=== PATIENT | female | born 1980 | race Caucasian/White ===

== ENCOUNTER 2021-07-17 01:22 | Day surgery (SDC) | payer OTHER, SELFPAY ==
[2021-07-16 08:18] VITALS: BMI 33.1
--- NOTE | 2021-07-16 08:32 | PC.NURSE ---
Report to the Outpatient Waiting Room, entrance under the green pavilion located off [facility], at time 1000 on date 07/17/21. OR Time: 1200. - You and your visitor will be asked a series of questions to screen for COVID 19 for your protection. - A mask is required within the hospital. One visitor will be allowed to accompany the patient into the hospital. Patients visitor will be instructed to remain with patient at all times or leave the building. We will allow the visitor to come back to the postoperative area when patient is ready. Preoperative COVID Testing Requirements: No COVID Test needed if: (proof is required; if not received patient will have Rapid Test prior to entry) - Patient has received COVID Vaccine at least 14 days prior to procedure date or - Patient has positive COVID test result within last 90 days of surgery date. COVID Test needed if above criteria is not met Patients may have clear liquids (water, carbonated beverages, clear teas, apple juice) until 3 hours prior to surgery with a maximum of 20 ounces. - No food from midnight until time of surgery Take the following medications with a SIP of water the morning of surgery: NONE Medications to discontinue per physician: VITAMINS Date to take last dose: NO MORE UNTIL AFTER SURGERY Please no make-up, nail slovak, hairspray, perfume, deodorant, or body powder the day of surgery. No jewelry (including any body piercings) or valuables the day of surgery, leave them at home. Please take a shower or bath the night before, or the morning of, surgery with an antibacterial soap. Wear comfortable, loose fitting clothing. - Jewelry must be removed prior to entering the operating room. Rings and piercings that are not removed may be cut off. - The hospital will not accept responsibility for valuables. - Please leave all valuables, including medications, at home the day of surgery. If you are going home after surgery, a licensed company driver must drive you home. - NO public transportation without another adult. - We recommend that an adult stay with you for 24 hours following discharge. - We also recommend that you do not drive, make important decision, drink alcoholic beverages, or take any drugs that were not prescribed by your health care provider for at least 24 hours after your discharge time. Follow any additional instructions given to you from your surgeon. Telephone instructions given to DIANE DAVIS and asked if any additional questions and then verbalized understanding. Patient advised to call surgeon office or pre surgery nurse liaison [phone] if any additional questions.
[2021-07-17 10:01] VITALS: BP 121/73; PULSE 90; RESP 18; TEMP 36.8; O2SAT 100
[2021-07-17] MEDS: LACTATED RINGERS 1,000 ML 30 ML IV CONT (10:25)
--- NOTE | 2021-07-17 10:38 | WPDANESEPPF ---
Anes - Initial Pre Proc Eval Procedure: Operation Date: 07/17/21 12:00 Proposed Procedures p Suction Dilatation and Curettage - Alec Duff MD Date/Time: 07/17/21 10:38 Surgeon: Alec Duff MD Pre Op Diagnosis: missed AB Patient Data Age: 41 Gender: F Height: 1.6 m Weight: 84.82 kg Allergies Allergy/AdvReac Type Severity Reaction Status Date / Time erythromycin base AdvReac Unknown STOMACH Verified 07/16/21 08:16 PAIN Home Medications Medication Instructions Recorded Confirmed Type multivitamin 1 tablet PO DAILY 07/16/21 07/16/21 History Patient hx anesthesia problems: none Family hx anesthesia problems: none Results Review: All pre-operative results and documents have been reviewed as part of the pre-operative evaluation. [facility] Past Medical History Medical History Anxiety Hx of migraines Social History Social History Smoking packs per day: 0.75 Smoking cigarettes per day: 15.0 Years smoked: 15 Smoking pack-years: 11.25 Smoking status: Former smoker Tobacco type: cigarettes Smoking end date: 04/12/15 Alcohol intake: never Substance use: never Substance use type: does not use Living arrangements: with family Spiritual care concerns: No Anes - Eval Final PreProcedure Day of Procedure 07/17/21 10:38 Patient weight: obese Heart: regular rate and rhythm Lungs: clear to auscultation Airway: Mallampati scale class II Neurological: alert and oriented Last oral intake: >/= 8 hours ASA classification: II Emergent: no Anesthetic plan: proceed Anesthesia type and monitoring: general GIVS and standard monitoring Results Review: All pre-operative results and documents have been reviewed as part of the pre-operative evaluation. Informed Consent: The patient's anesthetic plan and its attendant risks and benefits were discussed with the patient/family/POA. Questions were solicited and answers provided to the satisfaction of the patient/family/POA.
--- NOTE | 2021-07-17 12:03 | PM.IMHP ---
H&P: HPI History of Present Illness Date/Time: 07/17/21 12:03 41 y/o with LMP 04/28/21, putting her at 11 w 3 days. Ultrasound in office shows IUP with CRL 8 weeks size and no cardiac activity. Cramping, but no bleeding. Rh pos. Chief Complaint: Miscarriage Review of Systems Review of Systems: All systems reviewed & are unremarkable except as noted in HPI and below PMFSH Past Medical History Medical History Anxiety Hx of migraines Social History Social History Smoking packs per day: 0.75 Smoking cigarettes per day: 15.0 Years smoked: 15 Smoking pack-years: 11.25 Smoking status: Former smoker Tobacco type: cigarettes Smoking end date: 04/12/15 Alcohol intake: never Substance use: never Substance use type: does not use Living arrangements: with family Spiritual care concerns: No Meds Home Medications and Allergies Home Medications Medication Instructions Recorded Confirmed Type multivitamin 1 tablet PO DAILY 07/16/21 07/17/21 History Allergies Allergy/AdvReac Type Severity Reaction Status Date / Time erythromycin base AdvReac Unknown STOMACH Verified 07/17/21 11:22 PAIN Vital Signs Vital Signs - 24 hr 07/17/21 10:01 Temperature 36.8 C Pulse Rate 90 Respiratory Rate 18 Blood Pressure 121/73 Pulse Oximetry 100 Exam Const: Orientation/consciousness: patient oriented x3 Other: Well-developed, well-nourished female in no acute distress. Neck: Thyroid: thyroid normal Lymphatic: no lymphadenopathy noted (in neck, axilla or inguinal nodes) Resp: Effort & Inspection: normal respiratory effort Auscultation: clear to auscultation bilaterally Cardio: Rate: regular rate Rhythm: regular rhythm Heart sounds: S1 normal heart sound present and S2 normal heart sound present GI: Other: ABD: Soft, nontender, nondistended. No guarding or rebound tenderness. No hepatosplenomegaly. : General: Yes no CVA tenderness Other: External genitalia: normal female hair distribution, without lesion. Urethral meatus: no lesion, non prolapsed. Bladder: no mass, nontender Vagina: well-estrogenized, without lesion or discharge. No cystocele or rectocele. Cervix: no lesion or discharge. Uterus: small, anteverted, freely mobile, nontender Adnexa: no mass or tenderness. Anus/perineum: no lesions, nontender Back/Spine/Pelvis: Back: no CVA tenderness Skin: General skin exam: normal color and no rashes or lesions noted Neuro: General: patient oriented x3 Extrem: Other: Extremities: nontender with no edema Psych: Mental Status: mental status grossly normal Affect: normal affect Assessment and Plan Assessment and plan (1) Missed : Code(s): O02.1 - Missed Status: Acute Assessment and Plan: A: Missed SAB. P: Offered expectant management vs. suction D&C. She prefers the latter. She understands risks of surgery to include risks of anesthesia, risks of pain, infection, bleeding, blood products, thromboembolic phenomena and damage to adjacent structures such as bowel, bladder, ureters, blood vessels and nerves. She understands all these risks and elects to proceed with surgery.
--- NOTE | 2021-07-17 12:06 | WPDHPUPDATE1 ---
History and Physical Update Update Date/Time: 07/17/21 12:06 History and Physical has been reviewed, including an updated exam of the patient. There are NO changes in the patient's condition. Risks, benefits, and alternatives have been discussed and questions answered. Patient agrees to proceed with procedure.
--- NOTE | 2021-07-17 12:40 | W.PM.PROC2 ---
Procedure Note - Detailed Date of Procedure 07/17/21 Pre-op Diagnosis Missed SAB Post-op Diagnosis Same Procedure Performed Ultrasound guided dilation and suction curettage Surgeon Alec Duff MD Anesthesia MAC and Local (Paracervical block) Findings POC noted. Uterus empty at conclusion of procedure. Description of Procedure The patient was taken to the operating room where she was prepared and draped in the usual sterile fashion in the dorsal lithotomy position. The bladder was drained with a red rubber catheter. A sterile speculum was placed into the vagina. The anterior lip of the cervix was grasped with a single-tooth tenaculum. Ten mL of 1% lidocaine was administered in a paracervical block. The cervix was gently dilated using Hegar dilators until an 8mm dilator could be passed. The 8mm curved tip suction curette was advanced. Suction curettage was performed and products of conception were aspirated. Sharp curettage was then performed until a good uterine cry was noted. A final pass with the suction curette was made. Transabdominal ultrasound exam performed by me throughout the procedure confirmed an empty endometrial cavity. The tenaculum was removed. Hemostasis was excellent. Sponge, lap, needle and instrument counts were correct. The patient was taken to the recovery room in stable condition. I was present and scrubbed for the entire procedure. Implants None Estimated Blood Loss 50 Drains No Packing No Pathology Yes (Endometrial curettings) Complications None Condition Stable Disposition PACU
[2021-07-17 12:50] VITALS: BP 121/66; PULSE 84; RESP 14; O2SAT 97
[2021-07-17 13:20] VITALS: BP 106/65; PULSE 65; RESP 14
[2021-07-17 13:50] VITALS: BP 106/71; PULSE 70; RESP 12
[2021-07-17 14:20] VITALS: BP 114/73; PULSE 72; RESP 14
== END 2021-07-17 15:00 | disposition home or self-care (01) ==
PROVIDERS: PCP Physician Assistant; Visit Provider Obstetrics & Gynecology
PROC: (CPT 59820; principal; 2021-07-17 12:00)
DX: O02.1 Missed abortion (principal); Z87.891 Personal history of nicotine dependence; Z3A.11 11 weeks gestation of pregnancy
CPT/HCPCS: 59820; 88305; A9270; J0131; J1100; J2250; J2270; J2405; J2590; J2704; J7120

== ENCOUNTER 2024-06-07 16:16 | Outpatient (CLI) | payer OTHER, SELFPAY ==
[2024-06-07] VITALS (12 sets, daily range): BP systolic 133–144; BP diastolic 73–86; PULSE 107–124; O2SAT 94–97
[2024-06-07 17:25] LABS: Basophils Percent Auto 0.3 % (0.2-1.2); Eosinophils Absolute Auto 0.1 K/mm3 (0-0.3); Eosinophils Percent Auto 1.2 % (0-4.4); Hematocrit 34.8 % (37.0-47.0); Hemoglobin 11.6 g/dL (12.0-15.0); Immature Granulocyte Absolute 0.12 K/mm3 (0.00-0.031); Immature Granulocyte Percent A 1.2 % (0-0.5); Lymphocytes Absolute Auto 1.74 K/mm3 (0.9-3.2); Lymphocytes Percent Auto 17.8 % (18.3-44.2); Mean Corpuscular HGB Conc 33.3 g/dl (32-36); Mean Corpuscular Hemoglobin 31.4 pg (26-34); Mean Corpuscular Volume 94.1 fl (80-100); Mean Platelet Volume 10.7 fl (7.4-10.4); Monocytes Absolute Auto 0.8 K/mm3 (0.1-0.6); Monocytes Percent Auto 8.1 % (2.6-8.5); Neutrophils Percent Auto 71.4 % (45.5-73.1); Platelet Count Result 265 k/mm3 (150-375); Red Cell Distribution Width 14.2 % (11.5-14.5); White Blood Count 9.8 K/mm3 (4.5-10.0)
[2024-06-07 17:35] LABS: Alanine Aminotransferase 10 U/L (6-35); Albumin Level 3.1 g/dL (3.5-5.1); Alkaline Phosphatase 133 U/L (38-126); Anion Gap 10 mmol/L (4-12); Aspartate Amino Transferase 15 U/L (14-36); Bilirubin,Total 0.5 mg/dL (0.2-1.3); Blood Urea Nitrogen 5 mg/dL (7-17); Calcium 9.6 mg/dL (8.4-10.2); Carbon Dioxide 17 mmol/L (22-30); Chloride 108 mmol/L (98-107); Estimated Glomerular Filt Rate > 60; Glucose 102 mg/dL (65-110); Potassium 3.6 mmol/L (3.4-5.0); Sodium 135 mmol/L (137-145); Uric Acid 4.9 mg/dL (2.5-7.5)
[2024-06-07 17:37] LABS: Add Urine Microscopic? YES; Appearance Urine Cloudy (Clear); Bacteria Urine 4+ /hpf; Bilirubin Urine Negative (Negative); Blood Urine Negative (Negative); Color Urine Yellow (Yellow); Glucose Urine UA Negative (Negative); Ketones Urine Trace mg/dL (Negative); Leukocyte Esterase Ur 3+ LEU/UL (Negative); Need Manual Microscopic Reviewed; Nitrate Urine Negative (Negative); Protein Urine Trace mg/dL (Negative); RBC Urine 0-2 /hpf (0-2); Specific Grav Ur 1.014 (1.001-1.035); Squamous Epithelial Cell Urine Many /hpf (Few); Urobilinogen Urine 0.2 mg/dL (<2.0); WBC Urine 21-50 /hpf (0-3); pH Urine 7.5 (5.0-9.0)
[2024-06-07 17:50] LABS: Creatinine Urine 102.2 mg/dL; Total Protein Urine Random 19 mg/dL; Ur Ttl Prot Creatinine Ratio 0.19 mg/mg (0-0.20)
--- OUTSIDE RECORDS SUMMARY | 2024-06-07 18:24 | XMS_ITS | Encounter Summary ---
Author Organization [facility] Care Team Providers Care Skiver Heel Tap Name Role Phone Unknown, Karla Primary Care Provider Unavail able Ama Mike MD Primary Care Provider ParentHenny SANDRA Primary Care Provider [phone] Encounter Details Date Type Department Care Team (Latest Contact Info) Description 11/07/2014 Orders Only [facility] CLINCONV ProviderCarlos A MD [address] [place] [id number] Social History Tobacco Use Types Packs/Day Years Used Date Smoking Tobacco: Never Assessed Comments Unknown Sex and Gender Information Value Date Recorded Sex Assigned at Not on file 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 Historical Provider [facility] MATT HARRISON Final Result documented in this encounter Visit Diagnoses Not on filedocumented in this encounter Care Teams Skiver Heel Tap Relationship Specialty Start Date End Date Unknown, Karla PCP - General 05/25/22 06/10/22 Ama Mike MD PCP - General Family Practice 06/11/22 08/02/23 ParentHenny PA [address] [address] PCP - General Family Practice 08/03/23 documented as of this encounter
--- OUTSIDE RECORDS SUMMARY | 2024-06-07 18:24 | XMS_ITS | Clinical Summary ---
Author Organization [facility] Address [address] [address] Phone Care Team Providers Care Product Craftsman Name Role Phone Parent, Henny SotoKishan FLORES Primary Care Provider [phone] Allergies Active Allergy Reactions Criticality Noted Date Comments Erythromycin Stomach upset Low 12/06/2014 Stomach/GI Upset Stomach pain Medications traMADoL (ULTRAM) 50 mg tablet Take 1 tablet by mouth as needed Active cholecalciferol (VITAMIN D-3) 1,000 unit capsule Take 1,000 Units by mouth daily Active ketorolac (TORADOL) 10 mg tablet Take 10 mg by mouth every 6 (six) hours as needed Active rizatriptan (MAXALT) 10 mg tablet Take 10 mg by mouth as needed Active 168/iron/folic/ omega3 (ONE-A-DAY -1 ORAL) Take by mouth daily Active ALPRAZolam (XANAX) 0.5 mg tablet Take 0.5 mg by mouth nightly as needed for anxiety or sleep (will take 1/2 a tab needed unless for sleep) Active magnesium gluconate (MAGONATE) 500 mg (27 mg elemental) tabletIndicatio ns:hypomagnesem ia Take 500 mg by mouth daily Active MAGNESIUM MAL, THREON, CHELATE ORAL Take by mouth daily Active TURMERIC ORAL Take by mouth daily Active ascorbic acid (vitamin C) 1,000 mg tablet Take 1,000 mg by mouth daily Active docosahexaenoic acid/epa (FISH OIL ORAL) Take by mouth daily Active Active Problems Problem Noted Date Diagnosed Date Chronic bilateral low back pain without sciatica 06/11/2022 Coccydynia 06/11/2022 Mild depression 06/11/2022 MARYLOU (generalized anxiety disorder) 06/11/2022 Poor sleep 06/11/2022 Migraine without aura and wi thout status migrainosus, not intractable 06/11/2022 Cervicogenic headache 06/11/2022 Chronic tension-type headache, not intractable 0 06/11/2022 OMAIRA III (vulvar intraepithelial neoplasia III) 0 12/10/2014 Immunizations Immunization Administration Dates Next Due MMR 12/04/2017 TD Preservative Free 10/18/2014 Surgical History Surgery Date Site/Laterality Comments DILATION AND CURETTAGE OF UTERUS 04/12/2004 - 04/11/2005 CERVICAL BIOPSY W/ LOOP ELEC TRODE EXCISION 04/12/2009 - 04/11/2010 SKIN CANCER EXCISION 04/12/2013 - 04/11/2014 Vulva DILATION AND CURETTAGE OF UTERUS 04/12/2021 - 04/11/2022 Medical History Medical History Date Comments Headache Anxiety Depression Sleep difficulties Back pain Arthritis Vulvar intraepithelial neoplasia (OMAIRA) Family History Medical History Relation Name Comments Heart failure Maternal Grandfather Arthritis Maternal Grandmother Endometriosis Maternal Grandmother Anxiety disorder Mother Arthritis Mother Hypertension Mother Heart failure Paternal Grandfather Lung cancer Paternal Grandfather Breast cancer Paternal Grandmother Chiari malformation Sister Relation Name Status Comments Father Maternal Grandfather Maternal Grandmother Mother Paternal Grandfather Paternal Grandmother Sister Social History Tobacco Use Types Packs/Day Years Used Date Smoking Tobacco: Former Cigarettes 0.8 10 2 - 2014 Smokeless Tobacco: Never PHQ-2 Answer Date Recorded PHQ-2 Total Score (If total score is 3 or more points, staff should administer the PHQ-9) 0 06/11/2022 Personal Safety Answer Date Recorded Have you ever been in or are you currently in a harmful physical or emotional relationship or is someone making you feel afraid or unsafe? 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 Gender Identity Not on file Sexual Orientation Not on file Obstetrics History Last Filed Vital Signs Vital Sign Reading Time Taken Comments Blood Pressure 126/60 08/03/2023 5:30 PM CDT Pulse 68 08/03/2023 5:30 PM CDT Temperature 36.5 C (97.7 F) 08/03/2023 11:49 AM CDT Respiratory Rate 19 08/03/2023 5:30 PM CDT Oxygen Saturation 99% 08/03/2023 5:30 PM CDT Inhaled Oxygen Concentration - - Weight 86.6 kg (191 lb) 08/03/2023 11:49 AM CDT Height 160 cm (5' 3 ) 08/03/2023 11:49 AM CDT Body Mass Index 33.83 08/03/2023 11:49 AM CDT Plan of Treatment Health Maintenance Due Date Last Done Comments Breast Cancer Screening-Mammogram 1980 Hepatitis C Screening 1980 Varicella Vaccines (1 of 2 - 13+ 2-dose series) 01/21/1993 Hepatitis B Screening 01/21/1998 Regular Well Visit/Exam 18-64 01/21/1998 DTaP/Tdap/Td Vaccine (1 - Tdap) 10/19/2014 10/18/2014 Cervical Cancer Screening 03/19/20232021, 03/19/2022 Depression Screening 06/12/2023 06/11/2022, 06/11/2022 Covid-19 Vaccine (3 - 2023-2 5 season) 2023 09/06/2020, 08/14/2020 Influenza Vaccine (#1) 2023 HPV Vaccines Aged Out No longer eligi ble based on patient's age to complete this topic Pneumococcal vaccine <65 Aged Out No longer eligible based on patient's age to complete this topic Procedures Procedure Name Priority Date/Time Associated Diagnosis Comments PAP SMEAR WITH HPV Routine 03/19/2022 from Last 3 Months or Most Recently Relevant to Health Maintenance Results * PAP SMEAR WITH HPV (03/19/2022) us Historical Provider HEALTH MAINTENANCE Final Result from Last 3 Months or Most Recently Relevant to Health Maintenance Insurance [employer] PPO [facility] Advance Directives For more information, please contact: [phone] Documents on File Type Date Recorded 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
--- OUTSIDE RECORDS SUMMARY | 2024-06-07 18:24 | XMS_ITS | Referral Summary ---
Author Organization [facility] Address [address] [address] Care Team Providers Care Barrel Cutter Name Role Phone Parent, Henny FLORES Primary Care Provider [phone] Source Comments [facility],non-owned Affiliates and Associated Physician Practices is amultiple site organization consisting of ambulatory clinics and hospital sitesin [place], [place]. This disclosure is being madepursuant to the Care Everywhere program and may not contain all information available regarding this patient. Last updated 17.[facility] Allergies Active Allergy Reactions Criticality Noted Date Comments Erythromycin Other Low 12/06/2014 Stomach pain Medications * Be aware that medications may not be up to date on this document. Alwaysverify current medications with the patient. Medication Sig Dispensed Refills Start Date End Date Status MAGNESIUM PO Take 1 tablet by mouth once daily Active vitamin D3 (D3-1000) 1000 UNIT capsule Take 1,000 Units by mouth once daily Active ferrous sulfate 325 (65 FE) MG tablet Take 325 mg by mouth once daily Active rizatriptan (MAXALT) 10 MG tablet Take 10 mg by mouth daily as needed - may repeat one time for Migraine N Active ALPRAZolam (XANAX) 0.25 MG tablet Take 0.25 mg by mouth 3 times daily as needed for Anxiety Active TRAMADOL HCL PO Take 1 tablet by mouth once daily Active ketorolac (TORADOL) 10 MG tablet Take 10 mg by mouth every 6 hours as needed for Pain Active Active Problems Patient Care Coordination No te Formatting of this note migh t be different from the original. NOPP/MFCC 06/2017 Problem Noted Date Diagnosed Date AMA (advanced maternal age) multigravida 35+ 10/2017 OMAIRA III (vulvar intraepithelial neoplasia III) 0 12/10/2014 Anxiety 12/10/2014 Social History Tobacco Use Types Packs/Day Years Used Date Smoking Tobacco: Never Smokeless Tobacco: Never Alcohol Use Standard Drinks/Week Comments No 0 (1 standard drink = 0.6 oz pur e alcohol) Sex and Gender Information Value Date Recorded Sex Assigned at Not on file Gender Identity Not on file Sexual Orientation Not on file Last Filed Vital Signs Vital Sign Reading Time Taken Comments Blood Pressure 120/80 08/29/2020 2:50 PM CDT Pulse - - Temperature - - Respiratory Rate - - Oxygen Saturation - - Inhaled Oxygen Concentration - - Weight 84.4 kg (186 lb) 08/29/2020 2:50 PM CDT Height 160 cm (5' 3 ) 08/29/2020 2:50 PM CDT Body Mass Index 32.95 08/29/2020 2:50 PM CDT Plan of Treatment Not on file Care Teams Barrel Cutter Relationship Specialty Start Date End Date ParentHenny PA [address] [phone] PCP - General 07/22/21
--- OUTSIDE RECORDS SUMMARY | 2024-06-07 18:24 | XMS_ITS | Encounter Summary ---
Author Organization [facility] Care Team Providers Care Spinner Fixer Name Role Phone Unknown, Karla Primary Care Provider Unavail able Ama Mike MD Primary Care Provider ParentHenny SANDRA Primary Care Provider [phone] Encounter Details Date Type Department Care Team (Latest Contact Info) Description 11/06/2014 Orders Only [facility] CLINCONV ProviderCarlos A MD [address] [place] [address] Social History Tobacco Use Types Packs/Day Years Used Date Smoking Tobacco: Never Assessed Comments Unknown Sex and Gender Information Value Date Recorded Sex Assigned at Not on file 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
--- OUTSIDE RECORDS SUMMARY | 2024-06-07 18:24 | XMS_ITS | Patient Health Summary ---
Author Organization [facility] Address [address] [place] [address] Care Team Providers Care Butadiene Compressor Operator Name Role Phone Parent, Henny FLORES Primary Care Provider [phone] Note from [facility],non-owned Affiliates and Associated Physician Practices is amultiple site organization consisting of ambulatory clinics and hospital sitesin [place], [place], [place] and [place]. This disclosure is being madepursuant to the Care Everywhere program and may not contain all information available regarding this patient. Last updated 17.[facility] Allergies * Erythromycin(Other) -Low Criticality Medications * Be aware that medications may not be up to date on this document. Alwaysverify current medications with the patient. * MAGNESIUM PO Take 1 tablet by mouth once daily * vitamin D3 (D3-1000) 1000 UNIT capsule Take 1,000 Units by mouth once daily * ferrous sulfate 325 (65 FE) MG tablet Take 325 mg by mouth once daily * rizatriptan (MAXALT) 10 MG tablet Take 10 mg by mouth daily as needed - may repeat one time for Migraine N * ALPRAZolam (XANAX) 0.25 MG tablet Take 0.25 mg by mouth 3 times daily as needed for Anxiety * TRAMADOL HCL PO Take 1 tablet by mouth once daily * ketorolac (TORADOL) 10 MG tablet Take 10 mg by mouth every 6 hours as needed for Pain Active Problems Problem Noted Date Diagnosed Date AMA (advanced [...] Mass Index 32.95 08/29/2020 2:50 PM CDT Procedures * DERMATOPATHOLOGY(Performed 05/01/2021) * SONOGRAM - TRANSVAGINAL(Performed 07/26/2017) Performed for Elderly multigravida in second trimester (HCC) * SONOGRAM - TRANSVAGINAL(Performed 07/12/2017) Performed for Elderly multigravida in second trimester (HCC) * SONOGRAM - COMPLETE(Performed 06/14/2017) Performed for Antepartum multigravida of advanced maternal age (HCC) * ANEUPLOIDY SCREENING(Performed 06/14/2017) * PATHOLOGY/GENETICS HISTORICAL-ONBASE(Performed 12/06/2014) Results * DERMATOPATHOLOGY (05/01/2021 12:00 AM WEB DESIGNER) Case Report Dermatopathology Report Case: [id number] Authorizing Provider: Rox Griffin DO Collected: 05/01/2021 12:00 AM Ordering Location: [facility] Received: 05/05/2021 10:30 AM Pathologist: Janine Shepard MD Specimen: Skin, right anterior lower extremity 4:47 PM [facility] DERMATOPATHOLOGY [facility]ORAT[facility] Final Diagnosis Specimen A. SKIN, right anterior lower extremity: SEBORRHEIC KERATOSIS, MACULAR (L82.1) 2 4:47 PM [facility] DERMATOPATHOLOGY [facility]ORAT[facility] Clinical History ISK R/O NMSC. 2 4:47 PM [facility] DERMATOPATHOLOGY [facility] Gross Description Specimen A: Received is one formalin filled container labeled with the patient's name and designated right anterior lower extremity. The specimen consists of a shave biopsy measuring [id number]. Jar 0. 2 4:47 PM [facility] DERMATOPATHOLOGY [facility]ORATORY Microscopic Description Specimen A. SKIN, right anterior lower extremity: Sections show a relatively broad, flat proliferation of small keratinocytes. The surface is gently papillated, and there is increased basilar pigmentation. 2 4:47 PM [facility] DERMATOPATHOLOGY [facility]ORATORY Disclaimer An external and internal positive and negative controls are appropriate for the histochemical, immunohistochemical and immunofluorescence stain(s) in this case (if any), except where stated explicitly. The performance characteristics of the stain(s) cited in this report were developed and its performance characteristic determined by the Dermatopathology Laboratory at [facility], directed by Dr. Belinda Shepard. These tests need not be, and therefore are not, approved by the [place] Food and Drug Administration. The tests are used for clinical purposes. Billing Codes Specimen Charges Stain Charges 83048 1 2 4:47 PM [facility] DERMATOPATHOLOGY [facility] Embedded Images 2 4:47 PM [facility] DERMATOPATHOLOGY [facility]ORY Pathology/Cytolog y TISSUE SPECIMEN FROM SKIN / Unknown 05/01/2021 05/05/2021 10:30 AM [facility] Rox Griffin DO LAB - PATHOLOGY/C YTOLOGY ORDERABLES DERMATOPATHOLOGY LABORATORY [facility] - Department of Dermatology [facility] Medicine [address] [place] [address], [address] Floor [address] [phone] * SONOGRAM - TRANSVAGINAL (07/26/2017 3:36 PM CDT) Only the most recent of2 resultswithin the time period is included. Anatomical Region Laterality Modality Other 07/26/2017 3:36 PM CDT Narrative 07/28/2017 8:12 AM CDT [facility] PHONE: FAX: Pat. Name: DIANE SUMMERS Pat. No: [id number] Study Date: 07/26/2017 3:36pm , Age: 10 1980, 37 Pregnancies: 2, Para 0, Ab 1 Height: 63 in Weight: 190 lb LMP: 03/22/2017 GA by LMP: 18w0d GA by Base: 18w4d BELKIS: 12/23/2017 GA Selected: 18w4d (From [facility]) BELKIS: 12/23/2017 Referring MD: Alec Duff MD Drink Mixer: Rosalba Dia RDMS CPT4: 36411,76179 BMI: 33.65 Hist/Ind: Hx of LEEP AMA Hx of substance abuse Spotting in 1st trimester Uncertain LMP Cervix: Length: 4.8 cm Approach: transvaginal Heart Rate: 149 bpm Amniotic Fluid Index: 04.1cm (Deepest Pocket) EVAL, PLACENTA Presentation: breech Placenta: anterior Heart Rate: 149 bpm Amniotic Fluid Volume: normal CLINICAL SUMMARY Study Number: 3 A caraballo fetus is identified in breech presentation. The placenta is anterior. The amniotic fluid volume is normal. IMPRESSION: Single, live, IUP at 18w4d Normal AFV Reassuring cervical length and appearance RECOMMEND: Follow up ultrasound in 2 weeks for anatomy screen and reassess cervical length Thank you for allowing us the opportunity to care for your patient Vidal Malhotra MD <Electronic Signature> 07/26/2017 04:27pm Arnaud العراقي MD [facility] ORDERABLES * SONOGRAM - COMPLETE (06/14/2017 3:22 PM WEB DESIGNER) Anatomical Region Laterality Modality Other 06/14/2017 3:22 PM WEB DESIGNER Narrative 06/14/2017 4:07 PM WEB DESIGNER [facility] PHONE: FAX: Pat. Name: DIANE SUMMERS Pat. No: [id number] Study Date: 06/14/2017 3:22pm , Age: 10 1980, 37 Pregnancies: 2, Para 0, Ab 1 Height: 63 in Weight: 190 lb LMP: 03/22/2017 GA by LMP: 12w0d GA by US: 12w2d BELKIS: 12/25/2017 GA Selected: 12w4d (Outside Scan) BELKIS: 12/23/2017 Referring MD: Arnaud العراقي MD Drink Mixer: Yifan Parekh RDMS CPT4: 57514 BMI: 33.65 Hist/Ind: AMA Hx of substance abuse Hx of Leep Spotting in 1st trimester MEASUREMENTS & AGE GROWTH EVALUATION Measurement GA Range Srce %for GA Ratios ----- ---- ------- CRL 5.8 cm 12w2d ([id number]) Hadl CRL 38% GA for sonogram 12w2d ([id number]) based on (CRL) Avg Markers for Chromosomal Abnormality: NT 1.0 mm (Normal) Heart Rate: 162 bpm EVAL, PLACENTA Location: intrauterine Gestational Sac: normal Yolk Sac: not seen Embryo: visualized Heart Rate: 162 bpm Anatomy!Seen!Not Seen!Comments # Fetuses ! ! !One Amnion ! x ! ! Chorion ! x ! ! Myometrium ! x ! ! Right Ovary ! ! x ! Left Ovary ! ! x ! Cul de sac ! x ! ! Calvarium ! x ! ! Midline Falx ! x ! ! 4th Ventricle! ! x ! Ventricles ! ! x ! Choroid Plexu! x ! ! Nasal Bone ! ! x ! Neck/Dorsum ! x ! ! 4 CH ! ! x ! Transtracheal! ! x ! Abdominal Cor! x ! ! Diaphragm ! ! x ! Spine ! ! x ! Stomach ! ! x ! Kidneys ! ! x ! Bladder ! ! x ! Upper Extremi! x ! ! Lower Extremi! x ! ! CLINICAL SUMMARY Study Number: 1 A single intrauterine gestational sac is seen. The gestational sac contains a a fetus. There is normal heart motion. There is no free fluid in the cul de sac. IMPRESSION: Single, live IUP at 12w4d RECOMMEND: Follow up ultrasound at 16 weeks for TV CL NIPT drawn today. Thank you for allowing us the opportunity to care for your patient. Camron Grewal MD <Electronic Signature> 06/14/2017 04:07pm Arnaud العراقي MD [facility] ORDERABLES * PANORAMA TEST (06/14/2017) Trisomy 21 Low Risk Trisomy 18 Low Risk Trisomy 13 Low Risk Monosomy X Low Risk Triploidy/Angelica shing Twin NIPT Low Risk Blood BLOOD SPECIMEN / Unknown 06/14/2017 Narrative Razia Castanon GC - 06/22/2017 NIPT predicted gender: female Fraction: 10.9% Panorama - juan screen Hard copy results are scanned under media. Camron Grewal MD LAB - CHEMISTRY ISRRAEL BYRNES * PATHOLOGY/GENETICS HISTORICAL-ONBASE (12/06/2014) 12/06/2014 Narrative [facility] - 12/11/2014 7:33 AM CDT Nathaniel Sheffield MD LAB - CHEMISTRY ISRRAEL BYRNES [facility] [address] Care Teams Butadiene Compressor Operator Relationship Specialty Start Date End Date ParentHenny PA [address] [id number] PCP - General 07/22/21
--- OUTSIDE RECORDS SUMMARY | 2024-06-07 18:24 | XMS_ITS | Clinical Summary ---
Author Organization [facility] Address [address] [place] [address] Care Team Providers Care Trial Lawyer Name Role Phone Parent, Henny FLORES Primary Care Provider [phone] Source Comments [facility],non-owned Affiliates and Associated Physician Practices is amultiple site organization consisting of ambulatory clinics and hospital sitesin [place], [place], [place] and [place]. This disclosure is being madepursuant to the Care Everywhere program and may not contain all information available regarding this patient. Last updated 17.[facility] Allergies Active Allergy Reactions Criticality Noted Date [...] 08/29/2020 2:50 PM CDT Plan of Treatment Health Maintenance Due Date Last Done Comments LIPID TESTING 1980 MAMMOGRAM 1980 PAP SMEAR 1980 HIV SCREENING 01/21/1995 HEPATITIS C SCREENING 01/17/1998 DTAP/TDAP/TD VACCINES (1 - Tdap) 01/21/1999 HEPATITIS B VACCINE (1 of 3 - 19+ 3-dose series) 01/21/1999 SCREENING FOR DIABETES 08/29/2020 COVID-19 VACCINE ( - 2023-2 5 season) 2023 INFLUENZA VACCINE (#1) 2023 DEPRESSION SCREENING 04/12/2024 ZOSTER VACCINE (1 of 2) 01/21/2030 HIB VACCINE Aged Out No longer eligi ble based on patient's age to complete this topic HPV VACCINE Aged Out No longer eligi ble based on patient's age to complete this topic MENINGOCOCCAL (Group B) VACCINE Aged Out No longer eligible based on patient's age to complete this topic MENINGOCOCCAL VACCINE Aged Out No latha judson eligible based on patient's age to complete this topic PNEUMOCOCCAL VACCINE Aged Out No long er eligible based on patient's age to complete this topic Care Teams Trial Lawyer Relationship Specialty Start Date End Date Henny Shipley PA [address] [place] [id number] PCP - General 07/22/21
--- OUTSIDE RECORDS SUMMARY | 2024-06-07 18:24 | XMS_ITS | Referral Summary ---
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 Gender Identity Not on file Sexual Orientation [...] 08/03/2023 11:49 AM CDT Plan of Treatment Not on file Procedures Procedure Name Priority Date/Time Associated Diagnosis Comments HM PAP SMEAR WITH HPV Routine 03/19/2022 from Last 3 Months or Most Recently Relevant to Health Maintenance Results * HM PAP SMEAR WITH HPV (03/19/2022) us Historical Provider HEALTH MAINTENANCE Final Result from Last 3 Months or Most Recently Relevant to Health Maintenance Insurance [employer] OPT[employer] PPO [facility] OPTIONS PPO Advance Directives For more information, please contact: [phone] Documents on File Type Date Recorded Patient Electrical Service Technician Expl anation ADVANCE DIRECTIVE 08/05/2012 12:00 AM BRISSA R OF ENTERTAINER & COMIC FINANCIAL/MEDICAL Care Teams Tobacco Drying Machine Operator Relationship Specialty Start Date End Date Henny Shipley PA [address] [place] [address] PCP - General Family Practice 08/03/23
--- OUTSIDE RECORDS SUMMARY | 2024-06-07 18:24 | XMS_ITS | Encounter Summary ---
Author Organization [facility] Facility Care Team Providers Care Farm Equipment Assembler Name Role Phone Unknown, Notinfile Primary Care Provider Unavail Ama Hillman MD Primary Care Provider ParentHennyKishan FLORES Primary Care Provider [phone] Encounter Details Date Type Department Care Team (Latest Contact Info) Description 11/01/2014 Orders Only [facility] CLINCONV ProviderCarlos A MD [address] [place] [address] Social History Tobacco Use Types Packs/Day Years Used Date Smoking Tobacco: Never Assessed Comments Unknown Sex and Gender Information Value Date Recorded Sex Assigned at Not on file Legal Sex Female 6:22 PM PRODUCTION ADMINISTRATIVE ASSISTANT Gender Identity Not on file Sexual Orientation Not on file documented as of this encounter Plan of Treatment Not on file documented as of this encounter Procedures Procedure Name Priority Date/Time Associated Diagnosis Comments SCAN - LABS 06/23/2016 12:00 AM CDT CARDIOLOGY REPORT 06/23/2016 12: 00 AM CDT CARDIOLOGY REPORT 06/23/2016 12: 00 AM CDT documented in this encounter Results * SCAN - LABS (06/23/2016 12:00 AM CDT) Narrative 06/23/2016 12:00 AM CDT Ordered by an unspecified provider. Historical Provider Final Res ult * CARDIOLOGY REPORT (06/23/2016 12:00 AM CDT) Anatomical Region Laterality Modality Other Narrative 06/23/2016 12:00 AM CDT Ordered by an unspecified provider. us Historical Provider CV CARDIAC SERVICES PROCE DURES Final Result * CARDIOLOGY REPORT (06/23/2016 12:00 AM CDT) Anatomical Region Laterality Modality Other Narrative 06/23/2016 12:00 AM CDT Ordered by an unspecified provider. us Historical Provider CV CARDIAC SERVICES PROCE DURES Final Result documented in this encounter Visit Diagnoses Not on filedocumented in this encounter Care Teams Farm Equipment Assembler Relationship Specialty Start Date End Date Unknown, Notinfile PCP - General 05/25/22 06/10/22 Ama Mike MD PCP - General Family Practice 06/11/22 08/02/23 Henny Shipley PA [address] [address] PCP - General Family Practice 08/03/23 documented as of this encounter
--- OUTSIDE RECORDS SUMMARY | 2024-06-07 18:24 | XMS_ITS | Clinical Summary ---
Author Organization [facility] Address [address] [place] [address] Care Team Providers Care Track And Field Coach Name Role Phone Unavailable Primary Care Provider Unavailabl e Social History Tobacco Use Types Packs/Day Years Used Date Smoking Tobacco: Never Assessed Comments Unknown Sex and Gender Information Value Date Recorded Sex Assigned at Not on file Legal Sex Female 7:38 PM CDT Gender Identity Not on file Sexual Orientation Not on file Plan of Treatment Health Maintenance Due Date Last Done Comments Cervical Cancer Screening Pa p Smear (Age 30 to 64) Every 3 Years 1980 Annual Physical 01/21/1983 Hepatitis C 01/21/1998 DTaP, Tdap and Td Vaccines ( 1 - Tdap) 01/21/1999 Hepatitis B Vaccines (1 of 3 - 19+ 3-dose series) 01/21/1999 Cervical Cancer Screening Pa p with HPV Testing (Age 30 to 64) Every 5 Years 01/21/2010 Cervical Cancer Screening with HPV 01/21/2010 Mammogram Screening 2020 COVID-19 Vaccine (2023-2 5 season) 2023 Influenza Adult (#1) 2024 HPV Vaccines Aged Out No longer eligi ble based on patient's age to complete this topic Meningococcal B Vaccine Aged Out No l onger eligible based on patient's age to complete this topic Meningococcal Vaccine Aged Out No latha judson eligible based on patient's age to complete this topic Pneumococcal Vaccine: Pediat rics (0 to 5 Years) and At-Risk Patients (6 to 64 Years) Aged Out No longer eligible b ased on patient's age to complete this topic RSV Immunizations Under 20 Months Aged Out No longer eligible based on patient's age to complete this topic
== END 2024-06-07 18:10 | disposition home or self-care (01) ==
LOC: ANHOBOP 16:27 → ANHOBPP 16:28
PROVIDERS: PCP Physician Assistant; Visit Provider Obstetrics & Gynecology
DX: O13.9 Gestational [pregnancy-induced] hypertension without significant proteinuria, unspecified trimester (principal); Z3A.00 Weeks of gestation of pregnancy not specified
CPT/HCPCS: 36415; 59025; 80053; 81001; 82570; 84156; 84550; 85025; 99199

== ENCOUNTER 2024-06-13 18:10 | Inpatient (IN) | payer OTHER, SELFPAY ==
[2024-06-13] VITALS (53 sets, daily range): BP systolic 133–180; BP diastolic 65–101; PULSE 110–143; TEMP 37.1–37.7; O2SAT 92–99; BMI 37.0
--- OUTSIDE RECORDS SUMMARY | 2024-06-13 18:43 | XMS_ITS | Referral Summary ---
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 Gender Identity Not on file Sexual Orientation [...] to Health Maintenance Insurance [employer] OPTIONS PPO [facility] HMO/PPO Address: [address] [address] [facility]/PPO Address: [address] [address] [employer] OPTIONS PPO [facility] HMO/PPO Address: [address] [address] Advance Directives For more information, please contact: [phone] Documents on File Type Date Recorded Patient Store Keeper Expl anation ADVANCE DIRECTIVE 08/05/2012 12:00 AM BRISSA R OF REPAIR SERVICE DISPATCHER FINANCIAL/MEDICAL Care Teams Camp Dishwasher Relationship Specialty Start Date End Date Henny Shipley PA [address] [place] [address] PCP - General Family Practice 08/03/23
--- OUTSIDE RECORDS SUMMARY | 2024-06-13 18:43 | XMS_ITS | Clinical Summary ---
Author Organization [facility] Address [address] [place] [address] Care Team Providers Care Mash Grinder Name Role Phone Unavailable Primary Care Provider [...]
--- OUTSIDE RECORDS SUMMARY | 2024-06-13 18:43 | XMS_ITS | Clinical Summary ---
Author Organization [facility] Address [address] [place] [address] Care Team Providers Care Chiropractic Physician Name Role Phone Parent, Henny FLORES Primary Care Provider [phone] Source Comments [facility],non-owned Affiliates and Associated Physician Practices is amultiple site organization consisting of ambulatory clinics and hospital sitesin [place], [place], [place] and [place]. This disclosure is being madepursuant to the Care Everywhere program and may not contain all information available regarding this patient. Last updated 17.[facility] Allergies Active Allergy Reactions Criticality Noted Date [...] age to complete this topic Care Teams Chiropractic Physician Relationship Specialty Start Date End Date Henny Shipley PA [address] [place] [phone] PCP - General 07/22/21
--- OUTSIDE RECORDS SUMMARY | 2024-06-13 18:43 | XMS_ITS | Clinical Summary ---
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
--- OUTSIDE RECORDS SUMMARY | 2024-06-13 18:43 | XMS_ITS | Encounter Summary ---
Author Organization [facility] Facility Care Team Providers Care Software Engineer Sales Name Role Phone Unknown, Karla Primary Care Provider Unavail able Ama Mike MD Primary Care Provider ParentHenny SANDRA Primary Care Provider [phone] Encounter Details Date Type Department Care Team (Latest Contact Info) Description 11/06/2014 Orders Only [facility] CLINCONV ProviderCarlos A MD [address] [place] [address] Social History Tobacco Use Types Packs/Day Years Used Date Smoking Tobacco: Never Assessed Comments Unknown Sex and Gender Information Value Date Recorded Sex Assigned at Not on file 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
--- OUTSIDE RECORDS SUMMARY | 2024-06-13 18:43 | XMS_ITS | Encounter Summary ---
Author Organization [facility] Facility Care Team Providers Care Candy Separator Enrobing Name Role Phone Unknown, Notinfile Primary Care Provider Unavail Ama Hillman MD Primary Care Provider ParentHennyKishan FLORES Primary Care Provider [phone] Encounter Details Date Type Department Care Team (Latest Contact Info) Description 11/01/2014 Orders Only [facility] CLINCONV ProviderCarlos A MD [address] [place] [address] Social History Tobacco Use Types Packs/Day Years Used Date Smoking Tobacco: Never Assessed Comments Unknown Sex and Gender Information Value Date Recorded Sex Assigned at Not on file Legal Sex Female 6:[address] 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
--- OUTSIDE RECORDS SUMMARY | 2024-06-13 18:43 | XMS_ITS | Patient Health Summary ---
Author Organization [facility] Address [address] [place] [address] Care Team Providers Care Telecom Engineer Name Role Phone Parent, Henny FLORES Primary Care Provider [phone] Note from [facility],non-owned Affiliates and Associated Physician Practices is amultiple site organization consisting of ambulatory clinics and hospital sitesin [place], [place], [place] and [place]. This disclosure is being madepursuant to the Care Everywhere program and may not contain all information available regarding this patient. Last updated 17.[facility] Allergies * Erythromycin(Other) -Low Criticality Medications * [...] 12/06/2014) Results * DERMATOPATHOLOGY (05/01/2021 12:00 AM BUSPERSON) Case Report Dermatopathology Report Case: [id number] Authorizing Provider: Rox Griffin DO Collected: 05/01/2021 12:00 AM Ordering Location: [facility] DermPath Lab Received: 05/05/2021 10:30 AM Pathologist: Janine Shepard MD Specimen: Skin, right anterior lower extremity 4:47 PM [facility] DERMATOPATHOLOGY LABORATORY Final Diagnosis Specimen A. SKIN, right anterior lower extremity: SEBORRHEIC KERATOSIS, MACULAR (L82.1) 2 4:47 PM [facility] DERMATOPATHOLOGY LABORATORY Clinical History ISK R/O NMSC. 2 4:47 PM [facility] DERMATOPATHOLOGY LABORATORY Gross Description Specimen A: Received is one formalin filled container labeled with the patient's name and designated right anterior lower extremity. The specimen consists of a shave biopsy measuring [id number]. Jar 0. 2 4:47 PM [facility] DERMATOPATHOLOGY LABORATORY Microscopic Description Specimen A. SKIN, right anterior lower extremity: Sections show a relatively broad, flat proliferation of small keratinocytes. The surface is gently papillated, and there is increased basilar pigmentation. 2 4:47 PM [facility] DERMATOPATHOLOGY LABORATORY Disclaimer An external and internal positive and negative controls are appropriate for the histochemical, immunohistochemical and immunofluorescence stain(s) in this case (if any), except where stated explicitly. The performance characteristics of the stain(s) cited in this report were developed and its performance characteristic determined by the Dermatopathology Laboratory at [facility], directed by Dr. Belinda Shepard. These tests need not be, and therefore are not, approved by the [place] Food and Drug Administration. The tests are used for clinical purposes. Billing Codes Specimen Charges Stain Charges 49610 1 2 4:47 PM [facility] DERMATOPATHOLOGY LABORATORY Embedded Images 2 4:47 PM [facility] DERMATOPATHOLOGY LABORATORY Pathology/Cytolog y TISSUE SPECIMEN FROM SKIN / Unknown 05/01/2021 05/05/2021 10:30 AM [facility] Rox Griffin DO LAB - PATHOLOGY/C YTOLOGY ORDERABLES DERMATOPATHOLOGY LABORATORY [facility] - Department of Dermatology [facility] Medicine [address] [place] [address], [address] [phone] * SONOGRAM - TRANSVAGINAL (07/26/2017 3:36 PM CDT) Only the most recent of2 resultswithin the time period is included. Anatomical Region Laterality Modality Other 07/26/2017 3:36 PM CDT Narrative 07/28/2017 8:12 AM CDT [facility] PHONE: FAX: Pat. Name: DIANE SUMMERS Pat. No: [id number] Study Date: 07/26/2017 3:36pm , Age: 10 1980, 37 Pregnancies: 2, Para 0, Ab 1 Height: 63 in Weight: 190 lb LMP: 03/22/2017 GA by LMP: 18w0d GA by Base: 18w4d BELKIS: 12/23/2017 GA Selected: 18w4d (From [facility]) BELKIS: 12/23/2017 Referring MD: Alec Duff MD Body Masker: Rosalba Dia RDMS CPT4: 47901,04606 BMI: 33.65 Hist/Ind: Hx of LEEP AMA [...] <Electronic Signature> 07/26/2017 04:27pm Arnaud العراقي MD [facility] ORDERABLES * SONOGRAM - COMPLETE (06/14/2017 3:22 PM BUSPERSON) Anatomical Region Laterality Modality Other 06/14/2017 3:22 PM BUSPERSON Narrative 06/14/2017 4:07 PM BUSPERSON [facility] PHONE: FAX: Pat. Name: DIANE SUMMERS Pat. No: [id number] Study Date: 06/14/2017 3:22pm , Age: 10 1980, 37 Pregnancies: 2, Para 0, Ab 1 Height: 63 in Weight: 190 lb LMP: 03/22/2017 GA by LMP: 12w0d GA by US: 12w2d BELKIS: 12/25/2017 GA Selected: 12w4d (Outside Scan) BELKIS: 12/23/2017 Referring MD: Arnaud العراقي MD Body Masker: Yifan Parekh RDMS CPT4: 98286 BMI: 33.65 Hist/Ind: AMA Hx of substance abuse Hx of Leep Spotting in 1st trimester MEASUREMENTS & AGE GROWTH EVALUATION Measurement GA Range Srce %for GA Ratios ----- ---- ------- CRL 5.8 cm 12w2d ([id number]) Hadl CRL 38% GA for sonogram 12w2d ([id number]) based on (CRL) Avg Markers for Chromosomal [...] <Electronic Signature> 06/14/2017 04:07pm Arnaud العراقي MD [facility] ORDERABLES * PANORAMA TEST (06/14/2017) Trisomy 21 [...] BYRNES * PATHOLOGY/GENETICS HISTORICAL-ONBASE (12/06/2014) 12/06/2014 Narrative [facility] - 12/11/2014 7:33 AM CDT Nathaniel Sheffield MD LAB - CHEMISTRY [place] BYRNES [facility] [address] Care Teams Telecom Engineer Relationship Specialty Start Date End Date ParentHenny PA [address] [phone] PCP - General 07/22/21
--- OUTSIDE RECORDS SUMMARY | 2024-06-13 18:43 | XMS_ITS | Encounter Summary ---
Author Organization [facility] Care Team Providers Care Light Cleaner Name Role Phone Unknown, Karla Primary Care Provider Unavail able Ama Mike MD Primary Care Provider ParentHenny SANDRA Primary Care Provider [phone] Encounter Details Date Type Department Care Team (Latest Contact Info) Description 11/07/2014 Orders Only [facility] CLINCONV ProviderCarlos A MD [address] [place] [id number] Social History Tobacco Use Types Packs/Day Years Used Date Smoking Tobacco: Never Assessed Comments Unknown Sex and Gender Information Value Date Recorded Sex Assigned at Not on file Legal Sex Female 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
--- OUTSIDE RECORDS SUMMARY | 2024-06-13 18:43 | XMS_ITS | Referral Summary ---
Author Organization [facility] Address [address] [place] [address] Care Team Providers Care Operations Advisor Name Role Phone Parent, Henny FLORES Primary Care Provider [phone] Source Comments [facility],non-owned Affiliates and Associated Physician Practices is amultiple site organization consisting of ambulatory clinics and hospital sitesin [place], [place], [place] and [place]. This disclosure is being madepursuant to the Care Everywhere program and may not contain all information available regarding this patient. Last updated 17.[facility] Allergies Active Allergy Reactions Criticality Noted Date [...] of Treatment Not on file Care Teams Operations Advisor Relationship Specialty Start Date End Date ParentHenny PA [address] [phone] PCP - General 07/22/21
[2024-06-13 19:02] LABS: Basophils Percent Auto 0.3 % (0.2-1.2); Eosinophils Percent Auto 0.2 % (0-4.4); Hematocrit 36.1 % (37.0-47.0); Hemoglobin 12.1 g/dL (12.0-15.0); Immature Granulocyte Percent A 0.9 % (0-0.5); Immature Platelet Fraction Pct 6.5 % (0.9-11.2); Lymphocytes Absolute Auto 1.63 K/mm3 (0.9-3.2); Lymphocytes Percent Auto 14.1 % (18.3-44.2); Mean Corpuscular HGB Conc 33.5 g/dl (32-36); Mean Corpuscular Hemoglobin 31.8 pg (26-34); Mean Platelet Volume 11.2 fl (7.4-10.4); Neutrophils Absolute Auto 8.7 K/mm3 (1.3-6.7); Neutrophils Percent Auto 75.5 % (45.5-73.1); Platelet Count Result 235 k/mm3 (150-375); Red Cell Distribution Width 13.6 % (11.5-14.5); White Blood Count 11.6 K/mm3 (4.5-10.0)
--- NOTE | 2024-06-13 19:05 | LDADM ---
This patient, Angle Summers, was admitted to Labor/Delivery/Recovery 109 on 06/13/24 at 18:10. Plans for labor, pain management and were discussed with patient. Patient/family oriented to hospital policies and general routines including ID bracelet, bed and alarms, visiting hours, pain management, procedures, bathroom and other care routines, personal items, smoking policy, room service/diet and guest tray routines, security routines, and visiting hours. Patient/Family are encouraged to report perceived risks to care and to ask questions if they do not understand what they are told or what they should do. See OBIX for further documentation.
[2024-06-13 19:16] LABS: Platelet Estimate Adequate (Adequate)
[2024-06-13 19:17] LABS: Schistocytes None Seen
[2024-06-13 19:31] LABS: Uric Acid 9.7 mg/dL (2.5-7.5)
[2024-06-13 19:39] LABS: Alanine Aminotransferase 10 U/L (6-35); Albumin Level 3.5 g/dL (3.5-5.1); Alkaline Phosphatase 161 U/L (38-126); Anion Gap 12 mmol/L (4-12); Aspartate Amino Transferase 21 U/L (14-36); Bilirubin,Total 0.6 mg/dL (0.2-1.3); Blood Urea Nitrogen 11 mg/dL (7-17); Carbon Dioxide 16 mmol/L (22-30); Chloride 103 mmol/L (98-107); Estimated CRCL calculation 80 ml/min; Estimated Glomerular Filt Rate > 60; Glucose 74 mg/dL (65-110); Potassium 3.6 mmol/L (3.4-5.0); Sodium 131 mmol/L (137-145)
[2024-06-13 19:48] LABS: Calcium 15.9 mg/dL (8.4-10.2)
[2024-06-13 19:49] LABS: HIV 1/2 Ab P24 Ag Result Negative (Negative)
[2024-06-13 19:55] LABS: Syphilis IgG/IgM Antibody Negative (Negative)
[2024-06-13] MEDS: LABETALOL HCL INJ 100 MG/20 ML VIAL 20 MG IV PUSH (20:41)
[2024-06-13] MEDS: DEXTROSE 5%/LACTATED RINGERS 1,000 ML 125 ML IV CONT (20:47)
[2024-06-13 21:27] LABS: Influenza A QL RT-PCR Negative (Negative); Influenza B QL RT-PCR Negative (Negative); RSV RNA, RT-PCR Negative (Negative); SARS-CoV-2 RNA PCR Negative (Negative)
[2024-06-13 21:51] LABS: Add Urine Microscopic? YES; Appearance Urine Cloudy (Clear); Bacteria Urine 3+ /hpf; Bilirubin Urine Negative (Negative); Blood Urine Negative (Negative); Color Urine Yellow (Yellow); Glucose Urine UA Negative (Negative); Ketones Urine 3+ mg/dL (Negative); Leukocyte Esterase Ur 2+ LEU/UL (Negative); Need Manual Microscopic Reviewed; Nitrate Urine Negative (Negative); Protein Urine 1+ mg/dL (Negative); RBC Urine 0-2 /hpf (0-2); Specific Grav Ur 1.017 (1.001-1.035); Squamous Epithelial Cell Urine Moderate /hpf (Few); Urobilinogen Urine 0.2 mg/dL (<2.0); WBC Urine >100 /hpf (0-3); pH Urine 5.5 (5.0-9.0)
[2024-06-13] MEDS: DINOPROSTONE 10 MG VAG INSERT VAGINAL (22:20)
[2024-06-13] MEDS: ZOLPIDEM TARTRATE (*CRX) 5 MG TABLET PO (22:40)
--- NOTE | 2024-06-13 22:43 | P.PNAN_ITS ---
Anes - Eval Pre Procedure Procedure: Labor Pain management Date/Time: 06/13/24 22:43 Surgeon: Omega Preop Diagnosis: Pain during labor Pre Op Diagnosis: IOL Patient Data Age: 44 Gender: F Height: 1.6 m Weight: 95 kg Last Vital Signs Temp 98.8 F 06/13/24 22:15 Pulse 118 H 06/13/24 22:30 BP 163/94 H 06/13/24 22:30 Pulse Ox 95 06/13/24 22:39 O2 Del Method Room Air 06/13/24 19:04 Allergies Allergy/AdvReac Type Severity Reaction Status Date / Time erythromycin base AdvReac Unknown STOMACH Verified 06/09/24 15:49 PAIN Home Medications ?Medication ?Instructions ?Recorded ?Confirmed ?Type multivitamin 1 tablet PO DAILY 07/16/21 06/09/24 History Laboratory Tests 06/13/24 06/13/24 06/13/24 18:48 20:39 21:12 WBC 11.6 H K/mm3 (4.5-10.0) RBC 3.80 L M/mm3 (4.2-5.4) Hgb 12.1 g/dL (12.0-15.0) Hct 36.1 L % (37.0-47.0) MCV 95.0 fl (80-100) MCH 31.8 pg (26-34) MCHC 33.5 g/dl (32-36) RDW 13.6 % (11.5-14.5) Plt Count 235 k/mm3 (150-375) MPV 11.2 H fl (7.4-10.4) Immature Gran % (Auto) 0.9 H % (0-0.5) Neut % (Auto) 75.5 H % (45.5-73.1) Lymph % (Auto) 14.1 L % (18.3-44.2) [place] % (Auto) 9.0 H % (2.6-8.5) Eos % (Auto) 0.2 % (0-4.4) Baso % (Auto) 0.3 % (0.2-1.2) Lymph # (Auto) 1.63 K/mm3 (0.9-3.2) [place] # (Auto) 1.0 H K/mm3 (0.1-0.6) Eos # (Auto) 0.0 K/mm3 (0-0.3) Baso # (Auto) 0.0 K/mm3 (0.0-0.1) Abs Immat Gran (auto) 0.10 H K/mm3 (0.00-0.031) Absolute Neuts (auto) 8.7 H K/mm3 (1.3-6.7) Absolute Nucleated RBC 0.000 K/mm3 (0.0-0.012) Band Neutrophils % Not Reportable Nucleated RBC % 0.0 % (0.0-0.2) Platelet Estimate Adequate (Adequate) % Immature Plt Fraction 6.5 % (0.9-11.2) Schistocytes None seen Sodium 131 L mmol/L (137-145) Potassium 3.6 mmol/L (3.4-5.0) Chloride 103 mmol/L (98-107) Carbon Dioxide 16 L mmol/L (22-30) Anion Gap 12 mmol/L (4-12) BUN 11 D mg/dL (7-17) Creatinine 0.86 mg/dL (0.7-1.0) Estim Creat Clear Calc 80 ml/min Estimated GFR > 60 (59 - ) Glucose 74 mg/dL (65-110) Uric Acid 9.7 H mg/dL (2.5-7.5) Calcium 15.9 H* mg/dL (8.4-10.2) Total Bilirubin 0.6 mg/dL (0.2-1.3) AST 21 U/L (14-36) ALT 10 U/L (6-35) Alkaline Phosphatase 161 H U/L (38-126) Total Protein 6.0 L g/dL (6.3-8.2) Albumin 3.5 g/dL (3.5-5.1) Urine Color Yellow (Yellow) Urine Appearance Cloudy H (Clear) Urine pH 5.5 (5.0-9.0) Ur Specific [place] 1.017 (1.001-1.035) Urine Protein 1+ H mg/dL (Negative) Urine Glucose (UA) Negative mg/dL (Negative) Urine Ketones 3+ H mg/dL (Negative) Ur Blood (Man) Negative (Negative) Urine Nitrate Negative (Negative) Urine Bilirubin Negative (Negative) Urine Urobilinogen 0.2 mg/dL (<2.0) Add Ur Microanalysis Reviewed Leukocyte Esterase Rfl 2+ H BELA/UL (Negative) Urine RBC 0-2 /hpf (0-2) Urine WBC >100 H /hpf (0-3) Ur Squamous Epith Cells Moderate /hpf (Few) Urine Bacteria 3+ H /hpf Urine Casts 6-10 Syphilis IgG/IgM Ab Negative (Negative) HIV 1&2 Ab/P24 Ag 4thGn Negative (Negative) Influenza A (RT-PCR) Negative (Negative) Influenza B (RT-PCR) Negative (Negative) RSV (RT-PCR) Negative (Negative) SARS-CoV-2 RNA (RT-PCR) Negative (Negative) Blood Type B Positive Antibody Screen Negative Patient hx anesthesia problems: none Family hx anesthesia problems: none Results Review: All pre-operative results and documents have been reviewed as part of the pre- operative evaluation. [facility] Past Medical History Medical History Obesity (BMI 30-39.9) ANITA (stress urinary incontinence, female) Depression Chronic back pain Hx of migraines Anxiety Family History Family History Sibling Cerebrovascular accident Other Breast cancer Congestive heart failure Hypertension Social History Social History Smoking packs per day: 0.75 Smoking cigarettes per day: 15.0 Years smoked: 15 Smoking pack-years: 11.25 Smoking status: Former smoker Tobacco type: cigarettes Smoking end date: 04/12/15 Alcohol intake: never Substance use: never Substance use type: does not use Do You Feel Safe in your Home?: Yes Lack of Transportation: No Lack of Food: Never True Current Housing: I Have Housing Concerned About Future Housing: No Difficulty Paying Gas/Electric Bills: No Difficulty Paying for Meds: No Currently Unemployed: No Education: Bachelor's Degree Difficulty w/ Childcare or Family Care: No Living arrangements: with family Spiritual care concerns: No Exam Day of Procedure 06/13/24 22:43
[2024-06-14] VITALS (264 sets, daily range): BP systolic 84–175; BP diastolic 46–108; PULSE 39–129; RESP 16–21; TEMP 36.3–37.1; O2SAT 75–100
[2024-06-14] MEDS: diphenhydrAMINE HCl CAP 25 MG CAPSULE PO (00:28)
[2024-06-14] MEDS: LACTATED RINGERS 1,000 ML 125 ML IV CONT ×3 (05:38→15:47)
[2024-06-14] MEDS: OXYTOCIN 30 UNITS/NS 500 ML 30 UNITS/500 ML BAG IV CONT (05:39)
--- NOTE | 2024-06-14 07:44 | PM.IMHP ---
H&P: HPI History of Present Illness Date/Time: 06/14/24 07:44 Chief Complaint: Here for induction of labor Narrative: 44 y/o at 37 1/7 weeks with gestational hypertension, worsening blood pressure control. Her first labor was induced at 37 weeks for preeclampsia. Ultrasound exam shows EFW 8#3oz, vertex presentation. FAY OK. Had Cervidil overnight, has been withdrawn. She is feeling some contractions. GBS neg. NIPT neg. Review of Systems Review of Systems: All systems reviewed & are unremarkable except as noted in HPI and below PMFSH Past Medical History Medical History Obesity (BMI 30-39.9) ANITA (stress urinary incontinence, female) Depression Chronic back pain Hx of migraines Anxiety Family History Family History Sibling Cerebrovascular accident Other Breast cancer Congestive heart failure Hypertension Social History Social History Smoking packs per day: 0.75 Smoking cigarettes per day: 15.0 Years smoked: 15 Smoking pack-years: 11.25 Smoking status: Former smoker Tobacco type: cigarettes Smoking end date: 04/12/15 Alcohol intake: never Substance use: never Substance use type: does not use Do You Feel Safe in your Home?: Yes Lack of Transportation: No Lack of Food: Never True Current Housing: I Have Housing Concerned About Future Housing: No Difficulty Paying Gas/Electric Bills: No Difficulty Paying for Meds: No Currently Unemployed: No Education: Bachelor's Degree Difficulty w/ Childcare or Family Care: No Living arrangements: with family Spiritual care concerns: No Meds Home Medications and Allergies Home Medications ?Medication ?Instructions ?Recorded ?Confirmed ?Type multivitamin 1 tablet PO DAILY 07/16/21 06/09/24 History Allergies Allergy/AdvReac Type Severity Reaction Status Date / Time erythromycin base AdvReac Unknown STOMACH Verified 06/09/24 15:49 PAIN Vital Signs Vital Signs - 24 hr 06/13/24 19:04 06/13/24 19:14 06/13/24 19:39 Temperature Pulse Rate 137 H 143 H Blood Pressure 180/88 H 178/92 H Pulse Oximetry Oxygen Delivery Room Air 06/13/24 19:45 06/13/24 19:50 06/13/24 19:55 Temperature Pulse Rate 136 H Blood Pressure 157/92 H Pulse Oximetry 96 96 95 Oxygen Delivery 06/13/24 20:00 06/13/24 20:05 06/13/24 20:10 Temperature Pulse Rate 127 H Blood Pressure 159/88 H Pulse Oximetry 95 95 97 Oxygen Delivery 06/13/24 20:15 06/13/24 20:20 06/13/24 20:25 Temperature Pulse Rate 123 H Blood Pressure 166/101 H Pulse Oximetry 96 94 94 Oxygen Delivery 06/13/24 20:30 06/13/24 20:35 06/13/24 20:40 Temperature Pulse Rate 126 H Blood Pressure 160/87 H Pulse Oximetry 96 98 98 Oxygen Delivery 06/13/24 20:41 06/13/24 20:45 06/13/24 20:49 Temperature Pulse Rate 126 H 114 H Blood Pressure 140/68 Pulse Oximetry 97 96 Oxygen Delivery 06/13/24 20:50 06/13/24 20:54 06/13/24 20:55 Temperature 37.7 C H Pulse Rate 112 H Blood Pressure 138/75 Pulse Oximetry 96 Oxygen Delivery 06/13/24 20:59 06/13/24 21:01 06/13/24 21:51 Temperature Pulse Rate 117 H 113 H Blood Pressure 137/78 141/78 H Pulse Oximetry 97 Oxygen Delivery 06/13/24 22:00 06/13/24 22:05 06/13/24 22:10 Temperature Pulse Rate 121 H Blood Pressure 133/65 Pulse Oximetry 98 95 Oxygen Delivery 06/13/24 22:14 06/13/24 22:15 06/13/24 22:19 Temperature 37.1 C 37.1 C Pulse Rate Blood Pressure Pulse Oximetry 94 Oxygen Delivery 06/13/24 22:24 06/13/24 22:29 06/13/24 22:30 Temperature Pulse Rate 118 H Blood Pressure 163/94 H Pulse Oximetry 95 92 Oxygen Delivery 06/13/24 22:34 06/13/24 22:39 06/13/24 22:44 Temperature Pulse Rate Blood Pressure Pulse Oximetry 93 95 95 Oxygen Delivery 06/13/24 22:49 06/13/24 22:54 06/13/24 22:59 Temperature Pulse Rate Blood Pressure Pulse Oximetry 93 95 94 Oxygen Delivery 06/13/24 23:00 06/13/24 23:04 06/13/24 23:06 Temperature Pulse Rate 125 H Blood Pressure 139/70 Pulse Oximetry 97 97 Oxygen Delivery 06/13/24 23:11 06/13/24 23:16 06/13/24 23:21 Temperature Pulse Rate Blood Pressure Pulse Oximetry 95 95 95 Oxygen Delivery 06/13/24 23:26 06/13/24 23:29 06/13/24 23:30 Temperature Pulse Rate 121 H Blood Pressure 150/92 H Pulse Oximetry 95 95 Oxygen Delivery 06/13/24 23:33 06/13/24 23:38 06/13/24 23:43 Temperature Pulse Rate Blood Pressure Pulse Oximetry 97 97 99 Oxygen Delivery 06/13/24 23:48 06/13/24 23:53 06/13/24 23:58 Temperature Pulse Rate Blood Pressure Pulse Oximetry 97 99 97 Oxygen Delivery 06/14/24 00:00 06/14/24 00:03 06/14/24 00:08 Temperature Pulse Rate 121 H Blood Pressure 142/82 H Pulse Oximetry 96 96 Oxygen Delivery 06/14/24 00:13 06/14/24 00:30 06/14/24 00:33 Temperature 37.1 C Pulse Rate 127 H Blood Pressure 145/69 H Pulse Oximetry 95 Oxygen Delivery 06/14/24 01:00 06/14/24 01:06 06/14/24 01:11 Temperature Pulse Rate 116 H Blood Pressure 144/91 H Pulse Oximetry 97 97 Oxygen Delivery 06/14/24 01:16 06/14/24 01:21 06/14/24 01:26 Temperature Pulse Rate Blood Pressure Pulse Oximetry 95 96 97 Oxygen Delivery 06/14/24 01:31 06/14/24 01:33 06/14/24 01:36 Temperature Pulse Rate Blood Pressure Pulse Oximetry 99 97 93 Oxygen Delivery 06/14/24 01:41 06/14/24 01:44 06/14/24 01:49 Temperature Pulse Rate Blood Pressure Pulse Oximetry 94 98 97 Oxygen Delivery 06/14/24 01:59 06/14/24 02:02 06/14/24 02:07 Temperature Pulse Rate Blood Pressure Pulse Oximetry 96 92 92 Oxygen Delivery 06/14/24 02:12 06/14/24 02:15 06/14/24 02:20 Temperature Pulse Rate Blood Pressure Pulse Oximetry 92 97 96 Oxygen Delivery 06/14/24 02:25 06/14/24 02:30 06/14/24 02:35 Temperature Pulse Rate Blood Pressure Pulse Oximetry 95 95 95 Oxygen Delivery 06/14/24 02:40 06/14/24 02:41 06/14/24 02:46 Temperature Pulse Rate Blood Pressure Pulse Oximetry 98 98 96 Oxygen Delivery 06/14/24 02:48 06/14/24 02:53 06/14/24 02:58 Temperature 36.5 C Pulse Rate 117 H Blood Pressure 149/71 H Pulse Oximetry 96 91 96 Oxygen Delivery 06/14/24 03:03 06/14/24 03:04 06/14/24 03:04 Temperature Pulse Rate Blood Pressure Pulse Oximetry 98 97 96 Oxygen Delivery 06/14/24 03:09 06/14/24 03:14 06/14/24 03:19 Temperature Pulse Rate Blood Pressure Pulse Oximetry 96 96 95 Oxygen Delivery 06/14/24 03:24 06/14/24 03:29 06/14/24 03:34 Temperature Pulse Rate Blood Pressure Pulse Oximetry 93 95 95 Oxygen Delivery 06/14/24 03:39 06/14/24 03:44 06/14/24 03:48 Temperature Pulse Rate Blood Pressure Pulse Oximetry 93 98 97 Oxygen Delivery 06/14/24 03:53 06/14/24 03:58 06/14/24 04:03 Temperature Pulse Rate Blood Pressure Pulse Oximetry 91 94 94 Oxygen Delivery 06/14/24 04:08 06/14/24 04:28 06/14/24 04:33 Temperature Pulse Rate Blood Pressure Pulse Oximetry 96 97 95 Oxygen Delivery 06/14/24 04:38 06/14/24 04:43 06/14/24 04:48 Temperature Pulse Rate Blood Pressure Pulse Oximetry 95 99 95 Oxygen Delivery 06/14/24 04:53 06/14/24 04:58 06/14/24 05:03 Temperature Pulse Rate Blood Pressure Pulse Oximetry 96 93 96 Oxygen Delivery 06/14/24 05:08 06/14/24 05:13 06/14/24 05:18 Temperature Pulse Rate Blood Pressure Pulse Oximetry 94 96 94 Oxygen Delivery 06/14/24 05:22 06/14/24 05:25 06/14/24 05:30 Temperature Pulse Rate Blood Pressure Pulse Oximetry 99 98 96 Oxygen Delivery 06/14/24 05:32 06/14/24 05:37 06/14/24 05:39 Temperature 36.9 C Pulse Rate 118 H Blood Pressure 147/93 H Pulse Oximetry 96 98 Oxygen Delivery 06/14/24 05:42 06/14/24 05:47 06/14/24 05:52 Temperature Pulse Rate Blood Pressure Pulse Oximetry 97 97 97 Oxygen Delivery 06/14/24 05:57 06/14/24 06:02 06/14/24 06:07 Temperature Pulse Rate Blood Pressure Pulse Oximetry 96 96 96 Oxygen Delivery 06/14/24 06:12 06/14/24 06:20 06/14/24 06:25 Temperature Pulse Rate Blood Pressure Pulse Oximetry 96 97 96 Oxygen Delivery 06/14/24 06:30 06/14/24 06:35 06/14/24 06:40 Temperature Pulse Rate Blood Pressure Pulse Oximetry 97 97 97 Oxygen Delivery 06/14/24 06:45 06/14/24 06:50 06/14/24 06:55 Temperature Pulse Rate Blood Pressure Pulse Oximetry 96 97 97 Oxygen Delivery 06/14/24 07:00 06/14/24 07:04 06/14/24 07:05 Temperature Pulse Rate 122 H Blood Pressure 131/84 Pulse Oximetry 96 94 Oxygen Delivery 06/14/24 07:10 06/14/24 07:15 06/14/24 07:20 Temperature Pulse Rate Blood Pressure Pulse Oximetry 100 96 97 Oxygen Delivery 06/14/24 07:24 06/14/24 07:29 06/14/24 07:34 Temperature Pulse Rate Blood Pressure Pulse Oximetry 99 91 94 Oxygen Delivery 06/14/24 07:39 Temperature Pulse Rate Blood Pressure Pulse Oximetry 95 Oxygen Delivery Exam Const: Orientation/consciousness: patient oriented x3 Other: Well-developed, well-nourished female in no acute distress. Neck: Thyroid: thyroid normal Lymphatic: no lymphadenopathy noted (in neck, axilla or inguinal nodes) Resp: Effort & Inspection: normal respiratory effort Auscultation: clear to auscultation bilaterally Cardio: Rate: regular rate Rhythm: regular rhythm Heart sounds: S1 normal heart sound present and S2 normal heart sound present GI: Other: ABD: Soft, nontender, nondistended, gravid. NST reactive. Irregular contractions. Vertex presentation on Artur's maneuvers. : General: Yes no CVA tenderness Other: Cervix 1-2/50/-3, difficult to evaluate due to the patient's poor tolerance of the exam. Back/Spine/Pelvis: Back: no CVA tenderness Skin: General skin exam: normal color and no rashes or lesions noted Neuro: General: patient oriented x3 Extrem: Other: Extremities: nontender with no edema Psych: Mental Status: mental status grossly normal Affect: normal affect H&P: Results Labs Labs: Short CBC 06/13/24 Range/Units 18:48 WBC 11.6 H (4.5-10.0) K/mm3 Hgb 12.1 (12.0-15.0) g/dL Hct 36.1 L (37.0-47.0) % Plt Count 235 (150-375) k/mm3 BMP 06/13/24 18:48 Sodium 131 L Potassium 3.6 Chloride 103 Carbon Dioxide 16 L BUN 11 D Creatinine 0.86 Glucose 74 Calcium 15.9 H* Liver Function 06/13/24 Range/Units 18:48 Total Bilirubin 0.6 (0.2-1.3) mg/dL AST 21 (14-36) U/L ALT 10 (6-35) U/L Alkaline Phosphatase 161 H (38-126) U/L Albumin 3.5 (3.5-5.1) g/dL Urine 06/13/24 Range/Units 21:12 Urine Color Yellow (Yellow) Urine Appearance Cloudy H (Clear) Urine pH 5.5 (5.0-9.0) Ur Specific [place] 1.017 (1.001-1.035) Urine Protein 1+ H (Negative) mg/dL Urine Glucose (UA) Negative (Negative) mg/dL Assessment and Plan Assessment and plan (1) Term : Code(s): Z34.90 - Encounter for supervision of normal , unspecified, unspecified trimester Status: Acute Assessment and Plan: A: IUP at 37 1/7 weeks with gestational hypertension, worsening bp control. P: Offered induction of labor. S/p Cervidil. Now receiving oxytocin. AROM not possible yet. Anticipate . (2) Gestational hypertension: Code(s): O13.9 - Gestational [-induced] hypertension without significant proteinuria, unspecified trimester Status: Acute
--- NOTE | 2024-06-14 13:11 | PM.OBPNLAB ---
Pain Control Date/time seen: 06/14/24 13:11 Feels painful contractions sometimes. Sitting up eating chicken and dumplings and carrots. Pelvic Exam Comments: Exam poorly tolerated. Cervix is probably 2/50/-2, but the exam was of poor quality. She asked me to stop before exam was through. AROM not possible, as she was too uncomfortable and asked me to stop. Contractions Contraction frequency: 3 Contraction pattern: Regular Contraction intensity: Mild Status status: Category l Assessment and Plan Pitocin rate (mU/min): 12 Comments: Continue to increase oxytocin per protocol. Hope for AROM later today.
[2024-06-14] MEDS: ACETAMINOPHEN 500 MG TABLET 1000 MG PO (14:33)
--- NOTE | 2024-06-14 17:13 | PM.OBPNLAB ---
Pain Control Date/time seen: 06/14/24 1615 Comfortable with epidural. NST reactive TOCO: contractions every 2-3 min Cervix 3/80/-2. BBOW. AROM with clear fluid, but nonvertex presentation. Bedside ultrasound exam shows transverse presentation with head to maternal right. I offered an attempt at ECV, as the patient is comfortable and presentation seems variable. After informed consent obtained, external cephalic version undertaken with ultrasound guidance. Vertex presentation achieved. FHR normal throughout. Continue oxytocin. Anticipate . Contractions Contraction frequency: 3 Contraction pattern: Regular Contraction intensity: Mild Status status: Category l
[2024-06-14] MEDS: ONDANSETRON INJ 4 MG/2 ML VIAL IV PUSH (18:07)
[2024-06-14] MEDS: FAMOTIDINE 20 MG/2 ML VIAL IV PUSH (18:07)
--- NOTE | 2024-06-14 18:12 | P.PNAN_ITS ---
Anes - Eval Final PreProcedure Day of Procedure 06/14/24 18:12 Patient weight: obese Heart: regular rate and rhythm Lungs: clear to auscultation and normal air movement Airway: Mallampati scale class II Neurological: alert and oriented Last oral intake: >/= 8 hours ASA classification: II Emergent: no Anesthetic plan: proceed Anesthesia type and monitoring: regional epidural and standard monitoring Results Review: All pre-operative results and documents have been reviewed as part of the pre- operative evaluation. Informed Consent: The patient's anesthetic plan and its attendant risks and benefits were discussed with the patient/family/POA. Questions were solicited and answers provided to the satisfaction of the patient/family/POA.
--- NOTE | 2024-06-14 18:36 | PM.OBPNLAB ---
Pain Control Date/time seen: 06/14/24 18:36 Comfortable with epidural. AVSS NST reactive TOCO: Contractions every 2-3 min Cervix examined by RN - small part presenting. A: Malpresentation. P: Recommended delivery. She understands risks of surgery to include risks of anesthesia, risks of pain, infection, bleeding, blood products, thromboembolic phenomena and damage to adjacent structures such as bowel, bladder, ureters, blood vessels and nerves. She understands all these risks and elects to proceed with surgery. Contractions Contraction frequency: 3 Contraction pattern: Regular Contraction intensity: Mild Status status: Category l
[2024-06-14] MEDS: ceFAZolin 2 GM/D5W 50 ML 2 GM/50 ML BAG IVPB (18:37)
--- NOTE | 2024-06-14 18:37 | WPDHPUPDATE1 ---
History and Physical Update Update Date/Time: 06/14/24 18:37 History and Physical has been reviewed, including an updated exam of the patient. There are NO changes in the patient's condition. Risks, benefits, and alternatives have been discussed and questions answered. Patient agrees to proceed with procedure.
--- NOTE | 2024-06-14 19:39 | P.PCNOB_ITS ---
OB - Delivery Note Procedure Delivery date: 06/14/24 Pre-op diagnosis: Gestational Hypertension and Other (Malpresentation) Post-op Diagnosis: Same Induction method: Per Cervidil Protocol Delivery augmentation: Pitocin Delivery monitor: External FHT and External Uterine Procedure Performed: Primary Surgeon: Alec Duff MD Anesthesia type: Epidural Description of Procedure/Findings: The patient was taken to the operating room where she was prepared and draped in the usual sterile fashion in dorsal supine position with a leftward tilt. She received cefazolin preoperatively. Epidural anesthesia was found to be adequate. A Pfannenstiel skin incision was made and carried through to the underlying layer of the fascia. The fascia was incised in the midline and the incision was extended laterally. The fascia was dissected free of the und erlying rectus muscles. The rectus muscles were in the midline. The peritoneum was identified, tented up and entered sharply. The peritoneal incision was extended superiorly and inferiorly with good visualization of the bladder. The bladder blade was placed. The vesicouterine peritoneum was identified, tented up and entered sharply. The incision was extended laterally and the bladder flap was developed. The bladder blade was replaced. The uterus was then incised sharply in a transverse fashion along the lower uterine segment. The incision was extended laterally. The 's heels were grasped and delivered from footling breech presentation to the level of the scapulae. The arms were swept across the chest, the head gently flexed, and easily delivered. The nose and mouth were bulb suctioned. After a delay, the cord was clamped and cut. The infant was handed off the field. Cord blood was collected. The placenta was removed manually and was passed off the field. The uterus was exteriorized and cleared of all clots and debris. The uterine incision was reapproximated using 0 Monocryl in a running, locked fashion. A second, imbricating layer of the same suture was run. Excellent hemostasis resulted as did excellent reapproximation of the normal anatomy. The uterus was returned the abdomen. The pelvis was irrigated copiously with warmed normal saline. Rigorous hemostasis was assured. The fascial layer was reapproximated using 0 Vicryl in a running fashion. The skin was closed with a running, subcuticular stitch of 4 0 Vicryl. Dermaflex was applied externally. Sponge, lap, needle and instrument counts were correct. The patient was taken to the recovery room in stable condition. The infant went to the nursery in stable condition. I was present and scrubbed the entire procedure. Specimen: Yes (Cord blood, placenta) Estimated Blood Loss: 855 Urine Output: 200 Drains: Yes (Yo) Packing: No Pathology: Yes (placenta) Complications: None Condition: Stable Disposition: PACU [place] Date of : 06/14/24 Time of : 18:55 Gestational Age by Date: 37 gender: Male Weight (pounds): 8 Weight (ounces): 5 presentation: breech (single footling) Placenta delivery description: Manual Removal and Normal Configuration Cord Vessel Description: 3 Vessels
--- NOTE | 2024-06-14 19:43 | P.DS_ITS ---
DS: Admitting Diagnosis Discharge Date 06/18/2024 <Yoshi Dasilva MD - Last Filed: 06/18/24 07:08> Admitting Diagnosis IUP at 37 weeks Gestational hypertension <Alec Duff MD - Last Filed: 06/20/24 12:11> OB - DS: Summary OB Procedures : PIH Mgmt <Alec Duff MD - Last Filed: 06/20/24 12:11> OB Procedures Intrapartum: <Alec Duff MD - Last Filed: 06/20/24 12:11> OB Procedures: : None <Alec Duff MD - Last Filed: 06/20/24 12:11> Peripartum Data Procedures: Procedures Operation Date: 06/14/24 18:30 <No data on this case meets the specified criteria> <Alec Duff MD - Last Filed: 06/20/24 12:11> Time Spent with Patient Time attestation: Total time spent providing and/or coordinating discharge services: <Alec Duff MD - Last Filed: 06/20/24 12:11> DS: Data Data Completed and Pending Labs on day of discharge: Labs from last 24 hours 06/13/24 06/13/24 06/13/24 21:12 20:39 18:48 Calcium 15.9 H* Urine Color Yellow Urine Appearance Cloudy H Urine pH 5.5 Ur Specific [place] 1.017 Urine Protein 1+ H Urine Glucose (UA) Negative Urine Ketones 3+ H Ur Blood (Man) Negative Urine Nitrate Negative Urine Bilirubin Negative Urine Urobilinogen 0.2 Add Ur Microanalysis Reviewed Leukocyte Esterase Rfl 2+ H Urine RBC 0-2 Urine WBC >100 H Ur Squamous Epith Cells Moderate Urine Bacteria 3+ H Urine Casts 6-10 Syphilis IgG/IgM Ab Negative HIV 1&2 Ab/P24 Ag 4thGn Negative Influenza A (RT-PCR) Negative Influenza B (RT-PCR) Negative RSV (RT-PCR) Negative SARS-CoV-2 RNA (RT-PCR) Negative Blood Type B Positive Antibody Screen Negative <Alec Duff MD - Last Filed: 06/20/24 12:11> Discharge Plan Discharge Attending physician on discharge: Alec Duff <Alec Duff MD - Last Filed: 06/20/24 12:11> Alec Duff <Yoshi Dasilva MD - Last Filed: 06/18/24 07:08> Consulting providers: Lorena Hathaway; Daniel Jordan; Jose Brooks <Alec Duff MD - Last Filed: 06/20/24 12:11> Discharging Clinician: Alec Duff <Alec Duff MD - Last Filed: 06/20/24 12:11> Alec Duff <Yoshi Dasilva MD - Last Filed: 06/18/24 07:08> Patient Disposition: Home, Self-Care <Alec Duff MD - Last Filed: 06/20/24 12:11> Activity: may shower, may drive after 2 weeks and pelvic rest <Alec Duff MD - Last Filed: 06/20/24 12:11> may shower, may drive after 2 weeks and pelvic rest <Yoshi Dasilva MD - Last Filed: 06/18/24 07:08> Diet: regular <Alec Duff MD - Last Filed: 06/20/24 12:11> regular <Yoshi Dasilva MD - Last Filed: 06/18/24 07:08> Wound Care Instructions: incision open to air <Alec Duff MD - Last Filed: 06/20/24 12:11> incision open to air <Yoshi Dasilva MD - Last Filed: 06/18/24 07:08> Discharge Instructions: Education: Mom and Baby Guide Given to: Mother Follow-Up: Call your delivering provider's office for an appointment to be seen in: 4 Weeks [facility]. Appointment Date/Time: June 19, 2024 at 10:00 am What to expect at your follow-up visit: Blood Pressure Check Physical Assessment Call [phone] if you are unable to keep your appointment time. BREAST CARE: * Wear a snug supportive bra. * For engorgement discomfort: Breast Feeding: * Apply warm moist washcloths * Express milk as needed to relieve engorgement * Wear loose clothing Bottle Feeding: * May apply ice packs * For sore nipples: * Identify correct latch-on * Apply warm moist washcloths before and after nursing * Air dry nipples after nursing * May apply Lansinoh cream to nipples ABDOMINAL INCISION: * Allow incision to air dry * Do NOT use lotions or powders on your incision * When showering, allow soap and water to run over the incision, but do not wash incision PERINEAL CARE: * Until bleeding stops, use your carole bottle after urinating * Change your pad frequently throughout the day * You may take sitz baths several times a day (fill your bathtub with warm water and soak for 20 minutes.) Do NOT bathe in the water * No tub baths until seen by your physician - You may shower ACTIVITY: * Rest as much as possible. * Do not exercise or lift anything heavier than your baby (such as laundry or other children.) * Avoid stairs or driving as much as possible. * Do not put anything into the vagina. No douching, tampons, or sexual activity until seen by physician. NOTIFY PHYSICIAN IF YOU HAVE ANY QUESTIONS OR IF ANY OF THE FOLLOWING SYMPTOMS OCCUR: * If your incision becomes red, swollen, or more painful than what you have experienced in the hospital. * If your vaginal bleeding becomes foul smelling. * If your vaginal bleeding becomes more heavy than a period or if your bleeding changes from pink to bright red. However, you may pass an occasional walnut- sized clot once or twice for the first week . * If you experience a sharp, shooting pain in your calves. * If you discover a hard, reddened area on your breast or if you experience flu- like symptoms. DIET: * Eat regular, well-balanced meals. * Drink plenty of fluids daily. If , drink to thirst. Call or return if temperature above 100.4? F, increased abdominal pain, increased vaginal bleeding or any new problems. <Alec Duff MD - Last Filed: 06/20/24 12:11> Patient Language: Korean <Alec Duff MD - Last Filed: 06/20/24 12:11> Stand Alone Forms: General Discharge Information <Alec Duff MD - Last Filed: 06/20/24 12:11> Follow-up/Referrals: Alec Duff MD [Physician] - 4 Weeks <Alec Duff MD - Last Filed: 06/20/24 12:11> Discharge Medications: New ibuprofen 600 mg tablet 600 mg PO Q6H PRN (Reason: cramps) Qty: 30 0RF ferrous sulfate 325 mg (65 mg iron) tablet 325 mg PO DAILY Qty: 30 0RF oxycodone-acetaminophen [Percocet] 5-325 mg tablet 1 - 2 tablet PO Q6H PRN (Reason: pain) Qty: 30 0RF nifedipine [Procardia XL] 30 mg Tablet Extended Release 24hr 30 mg PO Q12HR Qty: 60 0RF Continued multivitamin Tablet 1 tablet PO DAILY <Alec Duff MD - Last Filed: 06/20/24 12:11> Date of admission: 06/13/24 18:10 <Alec Duff MD - Last Filed: 06/20/24 12:11> Primary Care Provider: Parent,Henny E. <Alec Duff MD - Last Filed: 06/20/24 12:11> Admitting Provider: Alec Duff <Alec Duff MD - Last Filed: 06/20/24 12:11> Attending physician on admission: Yoshi Miller <Alec Duff MD - Last Filed: 06/20/24 12:11> Condition: Stable <Alec Duff MD - Last Filed: 06/20/24 12:11>
[2024-06-14] MEDS: OXYTOCIN 30 UNITS/NS 500 ML 30 UNITS/500 ML BAG 125 UNITS IV CONT (21:07)
[2024-06-14] MEDS: diphenhydrAMINE HCl INJ 50 MG/ML VIAL 25 MG IV PUSH (23:24)
[2024-06-14] MEDS: KETOROLAC 15 MG/ML VIAL (*BKC) IV PUSH (23:26)
[2024-06-14] MEDS: NIFEdipine 30 MG TAB.ER.24 PO (23:26)
[2024-06-14] MEDS: ACETAMINOPHEN 325 MG TABLET 650 MG PO (23:27)
[2024-06-15 02:15] VITALS: BP 153/100; PULSE 100; RESP 18; TEMP 36.7; O2SAT 96
[2024-06-15] MEDS: DEXTROSE 5%/0.45% SOD CHL 1,000 ML 125 ML IV CONT (02:30)
[2024-06-15] MEDS: KETOROLAC 15 MG/ML VIAL (*BKC) IV PUSH ×3 (05:12→17:50)
[2024-06-15] MEDS: ACETAMINOPHEN 325 MG TABLET 650 MG PO ×3 (05:13→17:50)
[2024-06-15] MEDS: HYDROcodone/acetaminophen (*CRX) 5-325 MG TABLET 1 TAB PO (05:21)
[2024-06-15 05:40] LABS: Basophils Absolute Auto 0.1 K/mm3 (0.0-0.1); Basophils Percent Auto 0.4 % (0.2-1.2); Eosinophils Absolute Auto 0.1 K/mm3 (0-0.3); Eosinophils Percent Auto 0.5 % (0-4.4); Hematocrit 28.1 % (37.0-47.0); Hemoglobin 9.4 g/dL (12.0-15.0); Immature Granulocyte Absolute 0.12 K/mm3 (0.00-0.031); Immature Granulocyte Percent A 0.8 % (0-0.5); Lymphocytes Absolute Auto 1.25 K/mm3 (0.9-3.2); Lymphocytes Percent Auto 8.2 % (18.3-44.2); Mean Corpuscular HGB Conc 33.5 g/dl (32-36); Mean Corpuscular Hemoglobin 31.8 pg (26-34); Mean Corpuscular Volume 94.9 fl (80-100); Mean Platelet Volume 11.1 fl (7.4-10.4); Monocytes Absolute Auto 1.1 K/mm3 (0.1-0.6); Monocytes Percent Auto 7.4 % (2.6-8.5); Neutrophils Absolute Auto 12.6 K/mm3 (1.3-6.7); Neutrophils Percent Auto 82.7 % (45.5-73.1); Platelet Count Result 200 k/mm3 (150-375); Red Blood Count 2.96 M/mm3 (4.2-5.4); Red Cell Distribution Width 13.8 % (11.5-14.5); White Blood Count 15.2 K/mm3 (4.5-10.0)
[2024-06-15 05:53] VITALS: BP 148/88; PULSE 97; RESP 18; TEMP 37.1; O2SAT 96
[2024-06-15 08:10] VITALS: BP 131/85; PULSE 94; RESP 16; TEMP 36.8; O2SAT 94
--- NOTE | 2024-06-15 08:55 | P.PNOB_ITS ---
OB - PN: Subj Subjective Date/time seen: 06/15/24 08:55 Narrative: Pain OK. Desires circumcision for son. Says she is too sleepy to eat or drink right now. OB - PN: Obj Data Labs 06/15/24 05:17 06/13/24 18:48 Labs: Laboratory Results - last 24 hr 06/15/24 05:17 WBC 15.2 H RBC 2.96 L Hgb 9.4 L Hct 28.1 L MCV 94.9 MCH 31.8 MCHC 33.5 RDW 13.8 Plt Count 200 MPV 11.1 H Immature Gran % (Auto) 0.8 H Neut % (Auto) 82.7 H Lymph % (Auto) 8.2 L [place] % (Auto) 7.4 Eos % (Auto) 0.5 Baso % (Auto) 0.4 Lymph # (Auto) 1.25 [place] # (Auto) 1.1 H Eos # (Auto) 0.1 Baso # (Auto) 0.1 Abs Immat Gran (auto) 0.12 H Absolute Neuts (auto) 12.6 H Absolute Nucleated RBC 0.000 Nucleated RBC % 0.0 OB - PN A/P Plan day: 1 Comments: A: POD#1, doing well. P: Reviewed circ. IVF bolus, and continue IVF until she is eating / drinking. Routine care. Exam 2 Narrative: AVSS I/O overall OK, but only 125 mL urine over last 3.5 hours. ABD soft, nontender, fundus firm. Incision c/d/i. EXT nontender
[2024-06-15] MEDS: LACTATED RINGERS 1,000 ML 500 ML (09:07)
[2024-06-15] MEDS: KCL 20 MEQ/D5/0.45% SOD CHL 1,000 ML 125 ML IV CONT (11:45)
[2024-06-15] MEDS: SIMETHICONE 80 MG TAB.CHEW PO ×3 (11:46→17:50)
[2024-06-15] MEDS: MULTIVIT/MIN/PREN/FOL AC/IRON TABLET 1 TAB PO (11:47)
[2024-06-15] MEDS: DOCUSATE SODIUM 100 MG CAPSULE PO ×2 (11:47→17:50)
[2024-06-15] MEDS: POLYSACCHARIDE IRON COMPLEX 150 MG CAPSULE PO ×2 (11:48→17:50)
[2024-06-15 12:39] VITALS: BP 118/81; PULSE 94; RESP 18; TEMP 36.6; O2SAT 96
--- NOTE | 2024-06-15 12:42 | WPDANLDPN2 ---
Anes-Prog Note L&D Date/Time: 06/15/24 12:42 Comfortable throughout: section Neuraxial method: spinal Neuro status: Neuro function grossly intact. Cardiovascular status: normal Respiratory status: normal Airway patency: baseline Mental status: baseline Post-Op hydration status: normal Vital Signs: Last Vital Signs Temp 36.6 C 06/15/24 12:39 Pulse 94 06/15/24 12:39 Resp 18 06/15/24 12:39 BP 118/81 06/15/24 12:39 Pulse Ox 96 06/15/24 12:39 O2 Del Method Room Air 06/14/24 21:30 Pain score (VAS): 2 I/O: Intake & Output 06/14/24 06/15/24 06/15/24 23:59 07:59 15:59 Intake Total 2550 Output Total 1208 75 Balance 1342 -75 Patient feedback: Patient satisfied with anesthetic care.
--- NOTE | 2024-06-15 12:43 | WPDANLDNPN2 ---
Anes-Prog Note L&D-Neuraxial Date/Time: 06/15/24 12:43 Neuraxial medications: intrathecal PF morphine Opiod-related complaints: none Patient feedback: Patient satisfied with post-operative pain management.
[2024-06-15] MEDS: LIDOCAINE 5% PATCH 1 PATCH TRANSDERM (17:49)
[2024-06-15 17:50] VITALS: BP 135/89; PULSE 102; RESP 18; TEMP 36.6; O2SAT 99
[2024-06-15] MEDS: HYDROcodone/acetaminophen (*CRX) 10-325 MG TABLET 1 TAB PO (18:45)
--- NOTE | 2024-06-15 18:50 | PC.NURSE ---
1300 Introductions were made, per mother she is not wanting to breastfeed or set up a breast pump at this time, she is too exhausted and will call out when ready. Reported to Primary RN. 1700 Mother called out for to see her now. Introductions were made, then consulted with patient to assess needs related to . Mother led the conversation with her?plans to feed?her infant and the?experience so far. Per mother she has been so exhausted that she has not been up to or pumping, baby had some low blood sugars and received glucose gel and formula bottles. Hospital breast pump provided to use due to mother's request if infant is unable to latch and feed at the breast, she wants to protect her milk supply, discussed supply and demand. Instructions given on cleaning, care, usage, that there should be no pain, pumping schedule for milk production, collection, and storage of human milk. Patient was assessed for correct placement, flange size (both nipples measured 22mm and is using the size 27 flanges), to pump for comfort and nipple stretching/stimulation for adequate milk production every 3 hours (8 times in 24 hours) 1-2 times at night. Parents are encouraged to record the pumping schedule on the feeding sheet.?Mother voiced understanding of the education shared along with mom/baby guide and the pump measurement, flange fit handout for additional resource information. Per mother she is going to order her own breast pump through insurance, there is a specific one she wants and needs an RX sheet for her insurance. RN gave her the copy of the prescription to give her insurance from Dr. Duff's office RX sheet. RN encouraged understanding of the benefits of skin to skin (advised to unwrap and place upright on her chest), stimulating with massage touch, changing positions to encourage wakefulness, how to watch for early feeding cues, responsive feeding, feeding on demand (aiming for 8-12 times in 24 hours, about every 2-3 hours), milk production, building/maintaining a milk supply, duration of feeding, signs of adequate intake/output and how to record on the feeding sheet. Reviewed comfort measures of healing with a warm, wet washcloth to rinse breast, then leave open to air-dry, good handwashing when or touching the breast/nipples to prevent infection. Mother voiced understanding of skin to skin, stimulating with massage touch, responsive feedings, hand expressed colostrum, waking to encourage if it has been 2 -2.5 hours since the start of the last , to call if infant does not latch, or if there is discomfort with . Resources used for education were facilitated with the [visual educational handouts/ tool/mom and baby guide], Inpatient/outpatient resources provided with business card, feeding sheet, name written on the communication board, and the mom/baby guide. Parents voiced understanding of information, demonstrated learning and will call if there is a request for assistance. Reported all of the above to the Primary RN.
[2024-06-15 20:00] VITALS: BP 147/92; PULSE 105; RESP 16; TEMP 36.9; O2SAT 98
[2024-06-15] MEDS: NIFEdipine 30 MG TAB.ER.24 PO (21:00)
[2024-06-16] VITALS (7 sets, daily range): BP systolic 122–150; BP diastolic 80–102; PULSE 95–109; RESP 16–18; TEMP 36.6–37.2; O2SAT 96–98
[2024-06-16] MEDS: IBUPROFEN 600 MG TABLET PO ×5 (00:10→18:28)
[2024-06-16] MEDS: ACETAMINOPHEN 325 MG TABLET 650 MG PO ×5 (00:10→18:27)
--- NOTE | 2024-06-16 03:11 | PC.NURSE ---
0110- This RN informed pt that infant would need to be transferred to Level [address] Nino due to blood glucose instability, pt agreed with this plan. This RN offered to assist pt with pumping, however she declined stating that she was tired and wanted to sleep.
[2024-06-16] MEDS: LIDOCAINE 5% PATCH 1 PATCH TRANSDERM (05:12)
[2024-06-16] MEDS: HYDROcodone/acetaminophen (*CRX) 10-325 MG TABLET 1 TAB PO ×4 (05:31→22:41)
--- NOTE | 2024-06-16 07:15 | PC.NURSE ---
Spoke with mother and baby is still in Level II Nursery on IV fluids. RN encouraged mother to use her breast pump 8 times in 24 hours and 1-2 times at night in order to protect her milk supply. Breast pump was set up yesterday and mother has not yet used her pump as she was able to rest through the night with baby in the nursery. Reported to Primary RN.
--- NOTE | 2024-06-16 08:57 | P.PNOB_ITS ---
OB - PN: Subj Subjective Date/time seen: 06/16/24 08:57 Narrative: Pain OK. Tolerating diet. OB - PN: Obj Data Labs 06/15/24 05:17 06/13/24 18:48 OB - PN A/P Plan day: 2 Comments: A: POD#2, doing well. Gestational HTN - bp better on Procardia XL 30 mg daily. Desires circumcsion for son. P: Reviewed circ. Routine care. Exam 2 Narrative: AVSS I/O OK ABD soft, nontender, fundus firm. Incision c/d/i. EXT nontender
[2024-06-16] MEDS: MULTIVIT/MIN/PREN/FOL AC/IRON TABLET 1 TAB PO (09:35)
[2024-06-16] MEDS: DOCUSATE SODIUM 100 MG CAPSULE PO ×2 (09:35→16:47)
[2024-06-16] MEDS: SIMETHICONE 80 MG TAB.CHEW PO ×3 (09:36→16:47)
[2024-06-16] MEDS: POLYSACCHARIDE IRON COMPLEX 150 MG CAPSULE PO ×2 (09:36→16:47)
[2024-06-16] MEDS: NIFEdipine 30 MG TAB.ER.24 PO ×2 (18:00→21:00)
[2024-06-17 00:49] VITALS: BP 142/95; PULSE 97; RESP 16; TEMP 36.6; O2SAT 98
[2024-06-17] MEDS: LIDOCAINE 5% PATCH 1 PATCH TRANSDERM (01:19)
[2024-06-17 04:30] VITALS: BP 143/92; PULSE 90
[2024-06-17] MEDS: HYDROcodone/acetaminophen (*CRX) 10-325 MG TABLET 1 TAB PO ×2 (05:04→08:55)
[2024-06-17] MEDS: ACETAMINOPHEN 325 MG TABLET 650 MG PO ×2 (06:51→19:10)
[2024-06-17] MEDS: IBUPROFEN 600 MG TABLET PO ×3 (06:51→19:10)
[2024-06-17 07:00] VITALS: BP 137/84; PULSE 103; RESP 18; TEMP 36.5; O2SAT 93
--- NOTE | 2024-06-17 07:07 | P.PNOB_ITS ---
OB - PN: Subj Subjective Date/time seen: 06/17/24 07:07 Patient comments: no complaints, pain well controlled and tolerating diet [place] baby status: other (level 2) OB - PN: Obj Data Labs 06/15/24 05:17 06/13/24 18:48 OB - PN A/P Assessment and Plan (1) Term : Code(s): Z34.90 - Encounter for supervision of normal , unspecified, unspecified trimester Status: Acute (2) Gestational hypertension: Code(s): O13.9 - Gestational [-induced] hypertension without significant proteinuria, unspecified trimester Status: Acute Plan routine care Time Spent With Patient Time: Total time spent is greater than 50% in coordination of care (as documented) at patient's floor/unit and/or counseling patient: Review of Systems 2 Review of Systems: All systems reviewed & are unremarkable except as noted in HPI and below Exam 2 Const: General: cooperative, healthy appearing and comfortable O rientation/consciousness: oriented to person, oriented to place and oriented to time Resp: Effort & Inspection: normal respiratory effort Cardio: Rate: regular rate Rhythm: regular rhythm Heart sounds: S1 normal heart sound present and S2 normal heart sound present GI: Inspection: normal to inspection and incision (cdi)
--- NOTE | 2024-06-17 08:45 | PC.NURSE ---
Introductions were made, then consulted with patient to assess needs related to . Discussed with mother her?plans to feed?her and the?experience so far. Baby has just come up from the level 2 nursery. Mom states she pumped once while baby was in level 2. He has never fed at breast. Inquired as to mom's goals with and she states that it is her intention to put baby to breast but that she needs to know how to get her milk supply initiated. Reiterated that she needs to stimulate her breasts every 3 hours for at least 15 minutes either by baby going to breast or by pumping. A hospital pump has been provided to her. She has a Spectra at home and also a prescription for a pump so that she can order one through her insurance. Reviewed with patient that she needs to practice at the breast at every feeding if she wants baby to latch. Resources provided for inpatient and outpatient services with the feeding sheet, mom/baby guide and name written on the communication board. Mother voiced understanding of information and will call when there is a request for assistance. Reported to the Primary RN.
[2024-06-17] MEDS: SIMETHICONE 80 MG TAB.CHEW PO ×3 (08:55→16:59)
[2024-06-17] MEDS: NIFEdipine 30 MG TAB.ER.24 PO ×2 (08:56→21:10)
[2024-06-17] MEDS: MULTIVIT/MIN/PREN/FOL AC/IRON TABLET 1 TAB PO (08:56)
[2024-06-17] MEDS: DOCUSATE SODIUM 100 MG CAPSULE PO ×2 (08:56→16:59)
[2024-06-17] MEDS: POLYSACCHARIDE IRON COMPLEX 150 MG CAPSULE PO ×2 (08:56→16:59)
[2024-06-17 11:45] VITALS: BP 141/98; PULSE 108; RESP 18; O2SAT 96
--- NOTE | 2024-06-17 15:00 | PC.NURSE ---
Patient is concerned about getting a pump from her insurance in a timely manner. She inquired about rental pumps and decided to rent a [employer] for one month. She is comfortable with the use and knows the correct flange size because she has been using a hospital pump while here. Patient knows that she needs to take her pump kit home with her.
[2024-06-17] MEDS: HYDROcodone/acetaminophen (*CRX) 5-325 MG TABLET 1 TAB PO ×2 (15:34→21:14)
[2024-06-17 15:45] VITALS: BP 143/93; PULSE 104
[2024-06-17 18:50] VITALS: BP 145/92; PULSE 111; RESP 16; TEMP 37.2; O2SAT 97
[2024-06-18 00:01] VITALS: BP 149/91; PULSE 105; RESP 16; TEMP 37.1; O2SAT 96
[2024-06-18] MEDS: HYDROcodone/acetaminophen (*CRX) 5-325 MG TABLET 1 TAB PO (00:35)
[2024-06-18] MEDS: IBUPROFEN 600 MG TABLET PO ×2 (00:36→07:12)
[2024-06-18] MEDS: LIDOCAINE 5% PATCH 1 PATCH TRANSDERM (00:43)
--- NOTE | 2024-06-18 03:07 | PC.NURSE ---
Daylight Savings Time For Daylight Savings Time Beginning in the Spring - Clocks are moved ahead. For [facility], the time of change occurs at 0200 hrs. Time is taken from the meteorological observer. This entry on the patient's chart recognizes the change in time reflected during documentation. Example: 2 entries for vital signs may be charted for 0200 hrs.
[2024-06-18 05:06] VITALS: BP 152/97; PULSE 115; RESP 16; TEMP 37.2
[2024-06-18 07:00] VITALS: BP 123/82; PULSE 97; RESP 16; TEMP 36.4; O2SAT 98
--- NOTE | 2024-06-18 07:08 | P.PNOB_ITS ---
OB - PN: Subj Subjective Date/time seen: 06/18/24 07:08 Patient comments: no complaints, pain well controlled, tolerating diet and flatus present feeding status: exclusively breast feeding OB - PN: Obj Data Labs 06/15/24 05:17 06/13/24 18:48 OB - PN A/P Assessment and Plan (1) Term : Code(s): Z34.90 - Encounter for supervision of normal , unspecified, unspecified trimester Status: Acute (2) Gestational hypertension: Code(s): O13.9 - Gestational [-induced] hypertension without significant proteinuria, unspecified trimester Status: Acute Time Spent With Patient Time: Total time spent is greater than 50% in coordination of care (as documented) at patient's floor/unit and/or counseling patient: Review of Systems 2 Review of Systems: All systems reviewed & are unremarkable except as noted in HPI and below Exam 2 Const: General: cooperative, healthy appearing and comfortable O rientation/consciousness: oriented to person, oriented to place and oriented to time Resp: Effort & Inspection: normal respiratory effort GI: Inspection: normal to inspection and incision (cdi)
[2024-06-18] MEDS: ACETAMINOPHEN 325 MG TABLET 650 MG PO (07:12)
[2024-06-18] MEDS: SIMETHICONE 80 MG TAB.CHEW PO (07:12)
[2024-06-18] MEDS: POLYSACCHARIDE IRON COMPLEX 150 MG CAPSULE PO (07:12)
[2024-06-18] MEDS: MEASLES,MUMPS,RUBELLA VACCINE 0.5 ML VIAL SUB-Q (08:49)
[2024-06-18] MEDS: DOCUSATE SODIUM 100 MG CAPSULE PO (08:50)
[2024-06-18] MEDS: MULTIVIT/MIN/PREN/FOL AC/IRON TABLET 1 TAB PO (08:50)
[2024-06-18] MEDS: NIFEdipine 30 MG TAB.ER.24 PO (08:50)
--- NOTE | 2024-06-18 09:03 | PC.NURSE ---
Patient viewed the discharge video Mother & Baby Care, The First Two Weeks . Patient was given the opportunity and encouraged to ask questions. Patient verbalized understanding of information shared and has been given the mother/baby guide for home reference.
[2024-06-19 10:51] VITALS: BP 144/86; PULSE 98; RESP 20; TEMP 36.7; O2SAT 98
== END 2024-06-18 11:09 | disposition home or self-care (01) | DRG 788 ==
LOC: ANHOB2 06-16 08:58 → ANHLDR 06-20 09:30
PROVIDERS: Admitting Provider Obstetrics & Gynecology; PCP Physician Assistant; Visit Provider Obstetrics & Gynecology
PROC: 10D00Z1 Extraction of Products of Conception, Low, Open Approach (ICD-10-PCS; CPT 59514; principal; 2024-06-14 18:30)
DX: O32.8XX0 Maternal care for other malpresentation of fetus, not applicable or unspecified (principal); O13.4 Gestational [pregnancy-induced] hypertension without significant proteinuria, complicating childbirth; O99.214 Obesity complicating childbirth; Z3A.37 37 weeks gestation of pregnancy; Z37.0 Single live birth; Z87.891 Personal history of nicotine dependence
CPT/HCPCS: 36415; 80053; 81001; 84550; 85025; 85055; 86593; 86703; 86850; 86900; 86901; 87637; 88307; 90710; A9270; G0432; J0690; J1200; J1885; J2003; J2274; J2371; J2405; J2590; J2795; J3480; J7120; J7121

== ENCOUNTER 2024-08-04 13:11 | Outpatient (CLI) | payer OTHER, SELFPAY ==
--- OUTSIDE RECORDS SUMMARY | 2024-08-04 13:13 | XMS_ITS | Encounter Summary ---
Author Organization [facility] Facility Care Team Providers Care Special Event Assistant Name Role Phone Unknown, Notinfile Primary Care Provider Unavail Ama Hillman MD Primary Care Provider ParentHennyKishan FLORES Primary Care Provider [phone] Encounter Details Date Type Department Care Team (Latest Contact Info) Description 11/01/2014 Orders Only [facility] CLINCONV ProviderCarlos A MD [address] [place] [address] Social History Tobacco Use Types Packs/Day Years Used Date Smoking Tobacco: Never Assessed Comments Unknown Sex and Gender Information Value Date Recorded Sex Assigned at Not on file 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
--- OUTSIDE RECORDS SUMMARY | 2024-08-04 13:13 | XMS_ITS | Encounter Summary ---
Author Organization [facility] Facility Care Team Providers Care Student Support Advisor Name Role Phone Unknown, Karla Primary Care Provider Unavail able Ama Mike MD Primary Care Provider ParentHenny SANDRA Primary Care Provider [phone] Encounter Details Date Type Department Care Team (Latest Contact Info) Description 11/06/2014 Orders Only [facility] CLINCONV ProviderCarlos A MD [address] [place] [address] Social History Tobacco Use Types Packs/Day Years Used Date Smoking Tobacco: Never Assessed Comments Unknown Sex and Gender Information Value Date Recorded Sex Assigned at Not on file 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
--- OUTSIDE RECORDS SUMMARY | 2024-08-04 13:13 | XMS_ITS | Clinical Summary ---
Author Organization [facility] Address [address] [place] [id number] Care Team Providers Care Director Fixed Income Name Role Phone Unavailable Primary Care Provider [...] 2020 COVID-19 Vaccine (2023-2 5 season) 2023 HPV Vaccines Aged Out No longer eligi ble based on patient's age to complete this topic Meningococcal B Vaccine Aged Out No l onger eligible based on patient's age to complete this topic Meningococcal Vaccine Aged Out No latha judson eligible based on patient's age to complete this topic Pneumococcal Vaccine: Pediat rics (0 to 5 Years) and At-Risk Patients (6 to 49 Years) Aged Out No longer eligible b ased on patient's age to complete this topic RSV Immunizations Under 20 Months Aged Out No longer eligible based on patient's age to complete this topic
--- OUTSIDE RECORDS SUMMARY | 2024-08-04 13:14 | XMS_ITS | Referral Summary ---
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 Gender Identity Not on file Sexual Orientation [...] to Health Maintenance Insurance [employer] PPO [facility] HMO/PPO Address: [address] [address] [facility]PPO Address: [address] [address] [facility] OPTIONS PPO [facility] HMO/PPO Address: [address] [address] Advance Directives For more information, please contact: [phone] Documents on File Type Date Recorded 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
--- OUTSIDE RECORDS SUMMARY | 2024-08-04 13:14 | XMS_ITS | Clinical Summary ---
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
--- OUTSIDE RECORDS SUMMARY | 2024-08-04 13:14 | XMS_ITS | Encounter Summary ---
Author Organization [facility] Facility Care Team Providers Care Frog Or Oyster Farmworker Name Role Phone Unknown, Karla Primary Care Provider Unavail able Ama Mike MD Primary Care Provider ParentHenny SANDRA Primary Care Provider [phone] Encounter Details Date Type Department Care Team (Latest Contact Info) Description 11/07/2014 Orders Only [facility] CLINCONV ProviderCarlos A MD [address] [place] [address] Social History Tobacco Use Types Packs/Day Years Used Date Smoking Tobacco: Never Assessed Comments Unknown Sex and Gender Information Value Date Recorded Sex Assigned at Not on file 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
--- OUTSIDE RECORDS SUMMARY | 2024-08-04 13:14 | XMS_ITS | Clinical Summary ---
Author Organization [facility] Address [address] [place] [address] Care Team Providers Care Senior Procurement Manager Name Role Phone Parent, Henny Soto SANDRA Primary Care Provider [phone] Source Comments [facility],non-owned Affiliates and Associated Physician Practices is amultiple site organization consisting of ambulatory clinics and hospital sitesin [place], [place], [place] and [place]. This disclosure is being madepursuant to the Care Everywhere program and may not contain all information available regarding this patient. Last updated 17.[facility] Allergies Active Allergy Reactions Criticality Noted Date Comments Erythromycin Other Low 12/06/2014 Stomach pain Medications * Be aware that medications may not be up to date on this document. Alwaysverify current medications with the patient. 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 Gender Identity Not on file Sexual [...] VACCINE ( - 2023-2 5 season) 2023 DEPRESSION SCREENING 04/12/2024 INFLUENZA VACCINE (Season Ended) 2024 ZOSTER VACCINE (1 of 2) 01/21/2030 HIB VACCINE Aged Out No longer eligi ble based on patient's age to complete this topic HPV VACCINE Aged Out No longer eligi ble based on patient's age to complete this topic MENINGOCOCCAL (Group B) VACC INE SHARED DECISION-MAKING Aged Out No longer eligibl e based on patient's age to complete this topic MENINGOCOCCAL GROUPS A/C/Y/W VACCINE Aged Out No longer eligible b ased on patient's age to complete this topic PNEUMOCOCCAL VACCINE Aged Out No long er eligible based on patient's age to complete this topic Insurance [employer] [facility] Member Subscriber Plan / Payer (Ef fective 2010-Present) Name:Diane Summers Relation to Subscriber:Self Name:Diane Summers Payer ID:[id number] (NAIC) Type:PPO Address: [address] CARE SELF PAY NO INSURANCE Member Subscriber Plan / Payer (Ef fective for All Dates) Name:Diane Summers Member ID:Not on file Relation to Subscriber:Not on file Name:DIAEN SUMMERS Subscriber ID:Not on file (Home) Address: [address] [place] [id number] Payer ID:Not on file Group ID:Not on file Type:Self Pay Address: [place], [place] [facility] Care Teams Senior Procurement Manager Relationship Specialty Start Date End Date ParentHenny PA [address] [address] PCP - General 07/22/21
--- NOTE | 2024-08-04 14:00 | PC.NURSE ---
In- 1515 Out- 1430 Reason for visit: low milk supply, flange measurement History: Angle delivered on June 14 via primary for breech. She was induced and had a version but baby turned again while she was laboring. She acknowledges that she had a traumatic birthing experience that was very different from what she planned and expected. History: Garett was 37 weeks gestation and in the level 2 nursery for hypoglycemia at delivery. He received bottles of expressed milk and formula. Mom feels that he was 'taken' from her and that she didn't know she could go to the nursery to see him. She feels that they missed the bonding and feeding time she wanted to have immediately following . Observations: Angle states that she just pumped before coming in and that baby is ready to eat so she prepared a bottle. We sat and talked while she bottle fed him. He is a robust and healthy boy. There are no concerns about his weight gain so no pre/post feeding weight was obtained. He ate well and then slept. It is apparent that mom and baby have a strong luque and mom showed a lot of affection to baby. She has feelings of guilt that maybe she didn't pump enough right after delivery and that is why her supply is low. She is vague on how often she puts baby to breast but it seems that most feedings are pumped milk that is bottle fed. Baby gets formula at night because mom feels that this helps him sleep better. Mom isn't clear on how many times a day she pumps, but she does acknowledge that she does not pump during the night due to being so fatigued. Most sessions produce less than an ounce to 2 ounces. We reviewed that allowing the breast to be full for longer than 4 hours will signal the body to down regulate milk supply. She feels that the Spectra pump doesn't give her enough freedom to move around and manage the tasks of being a and mother. She has several (4, and she ordered another one to try) breast pumps and is switching back and forth between them and trying different flange sizes. She really wants a wearable pump so she has greater freedom while pumping. She is set to return to work in 5 weeks and states that she has a stressful job. We talked about ways to increase supply with relaxation and stress reduction, skin to skin, and also offering the breast to baby in a relaxed and pressure free way. She is encouraged to try a laid back feeding when baby is calm and alert and may be more likely to self latch. She states that latching is such a challenge due to how active baby is and that his arms and hands are always in the way. She says it would be great if he would breastfeed directly at every feeding but that he just 'wants the bottle' due to the quick flow. She expressed that she feels like it is very hard to be a mom in our society due to all the pressures to do everything the 'right' way but being stretched too thin between all of her obligations. She states that doctors who have treated her in the past have always said her complaints of chronic pain are 'in her head' or that she's 'just depressed'. Supported her to express her feelings about pain and acknowledge that what she feels is valid. Due to her chronic pain, it may follow that her anxiety around and milk supply are lending to her feelings of nipple pain and causing her to seek constant answers for a remedy. Encouraged mom that any amount of breast milk that baby gets benefits her and him. Reminded her that frequent milk removal is the best way to increase and maintain milk supply. Usually 7 pumping sessions a day is the 'magic number'. We also discussed alternative therapies, such as acupuncture and chiropractics. She has a chiropractor she sees regularly that performs acupuncture for her. She is also using herbal galactagogues that she has researched to try to increase her supply. Plan of Care: After talking at length, it seems that Angle's nipple pain began after she asked Dr. Robert Duff for a Reglan prescription to help increase her milk supply. After she began taking it, the nipple pain became quite intense and she was not able to increase the suction level of her pump above the lowest setting. She states that latching baby was also very painful. Baby's mouth and mom's nipples were observed and there are not white patches in baby's mouth that would be typical of thrush. Mom's nipples are reddened and intact but do not have any apparent signs of infection. Encouraged mom to let Dr. Robert Duff know if the nipple pain does not resolve now that she has stopped taking the Reglan (she stopped it within the last few days). If the pain continues it is possible there could be some other underlying cause that needs to be assessed by her provider. This morning she had a positive pumping experience with decreased pain. She was able to slowly increase the suction throughout the session and pumped a total of 4 ounces. Encouraged her this is a positive step in the right direction. She started power pumping in the evening yesterday and wants to continue that for a few days to see if it increases her supply. Educated her that she can power pump for a shorter duration (5 minutes) until she has an initial let down. Then she may stop for 10 minutes and then pump for another let down, repeating this a few times. Because mom isn't pumping for a set number of sessions each day, she is encouraged to consider pumping more frequently, especially at night to take advantage of higher prolactin levels and to reduce breast fullness. Follow up plans: Angle is instructed to call Dr. Duff if her nipple pain does not resolve within the next few days so that he may assess for any other underlying causes of pain such as infection. She is encouraged to reduce stress, increase pumping frequency and suction levels as tolerated, and to pump at least once each night. Though she seemed quite anxious, she states that overall she is much less stressed than she was with her last baby and that she is not depressed. It does not seem likely that a specific pump is the cause of the nipple pain or the reduced milk supply. She should choose which pump functions best for her and focus on using that pump regularly and consistently rather than switching back and forth between pump brands. The 24mm flange is the correct size for her by measurement. Encouraged her to determine what flange feels the most comfortable and gives the best results if the 24mm doesn't feel right for her. The nipple will stretch up to 2 inches while pumping so seeing a lot of tissue in the flange tunnel is acceptable as long as there is not pain and an excessive amount of areola isn't pulled in. Patient is supported to express her feelings of trauma, guilt, and failure and to move toward healing by seeking help from family and friends. She is also encouraged to seek care from her established providers as needed and to contact the office at any time. She is welcome to come for another appointment if needed.
== END 2024-08-04 13:12 | disposition home or self-care (01) ==
LOC: ANHOBOP 13:12
PROVIDERS: PCP Physician Assistant; Visit Provider Pediatrics
DX: O92.4 Hypogalactia (principal)
CPT/HCPCS: 99202; G0463

== ENCOUNTER 2025-02-01 12:05 | Outpatient (CLI) | payer OTHER, SELFPAY ==
--- NOTE | ~2025-02-01 | XR_ITS ---
EXAMINATION: XR knee LT 3V, 02/01/2025 12:45 CDT HISTORY: WON CHRONIC KNEE PAIN X 5 MONTHS COMPARISON: No comparisons available. Findings: No acute fracture or malalignment. No significant degenerative changes. Soft tissues unremarkable. Impression: No acute fracture or malalignment. Reviewed, dictated and finalized at location P. Impression: No acute fracture or malalignment.
--- NOTE | ~2025-02-01 | XR_ITS ---
EXAMINATION: XR knee RT 3V, 02/01/2025 12:45 CDT HISTORY: WON CHRONIC KNEE PAIN COMPARISON: No comparisons available. Findings: No acute fracture or malalignment. No significant degenerative changes. Soft tissues unremarkable. Impression: No acute fracture or malalignment. Reviewed, dictated and finalized at location P. Impression: No acute fracture or malalignment.
== END 2025-02-01 12:06 | disposition home or self-care (01) ==
LOC: ANHIMG 12:24
PROVIDERS: PCP Physician Assistant; Visit Provider Physician Assistant
DX: M25.561 Pain in right knee (principal); M25.562 Pain in left knee; G89.29 Other chronic pain
CPT/HCPCS: 73562